=== PATIENT | male | born 1960 | race Caucasian/White ===

== ENCOUNTER 2018-03-10 13:04 | Observation (INO) | payer SELFPAY ==
[2018-03-10] VITALS (7 sets, daily range): BP systolic 175–193; BP diastolic 78–95; PULSE 82–98; RESP 16–20; TEMP 98.1–98.7; O2SAT 98–100
[~2018-03-10] VITALS: Ht 177.8 cm; Wt 100.0 kg
[~2018-03-10 13:04] MED LIST: AMLO10 PO; DOXA1 PO; HYDR-2768 PO; LANTUS2P SQ; LEVO50TA4 PO; LISI-360 PO; LORTA5 PO; METF500 PO; NOVOLOGSS SQ
[2018-03-10] MEDS ORDERED: SODIUM CHLORIDE 0.9% FLUSH 10 ML FLUSH IVF PRN (13:45)
[2018-03-10] MEDS ORDERED: FURO1TAB62 PO (14:05)
[2018-03-10] MEDS ORDERED: NOVONP2 SQ (14:05)
--- NOTE | 2018-03-10 14:05 | RADRPT ---
EXAM DATE: 03/10/2018 1:57 PM EDT AGE/SEX: 57 years / Male INDICATIONS: Shortness of breath. CLINICAL DATA: This is the patient's initial encounter. Patient reports that signs and symptoms have been present for 1 day and indicates a pain score of 0/10. MEDICAL/SURGICAL HISTORY: None. None. COMPARISON: No prior exams available for comparison. FINDINGS: PA and lateral views of the chest demonstrate the lungs to be symmetrically aerated without evidence of mass, infiltrate or effusion. The cardiomediastinal contours are unremarkable. Osseous structures are intact. CONCLUSION: No active disease. Electronically signed by: Phil Webber MD 03/10/2018 2:04 PM EDT
--- NOTE | 2018-03-10 14:19 | RADRPT ---
EXAM DATE: 03/10/2018 2:14 PM EDT AGE/SEX: 57 years / Male INDICATIONS: Right ankle swelling and pain. CLINICAL DATA: This is the patient's initial encounter. Patient reports that signs and symptoms have been present for 2 days and indicates a pain score of 1/10. MEDICAL/SURGICAL HISTORY: Diabetes mellitus type II. . ORIF right ankle x 37 years COMPARISON: No prior exams available for comparison. FINDINGS: Previous plate and screw fixation right fibula. 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 No acute frac ture or dislocation. Bone spur posterior calcaneus. Soft tissue swelling over the lateral malleolus. Accessory ossicle at the medial malleolus which may be from prior fracture. CONCLUSION: No definite acute fracture. Previous fixation distal fibula. Soft tissue swelling over lateral malleo caryn. Probable remote avulsion fracture at the medial malleolus. Electronically signed by: Phil Webber MD 03/10/2018 2:17 PM EDT
[2018-03-10 15:01] LABS: AUTOMATED NEUTROPHIL # 4.5 TH/MM3 (1.8-7.7); BASOPHIL % 0.7 % (0.0-2.0); EOSINOPHIL # 0.2 TH/MM3 (0-0.4); EOSINOPHIL % 2.7 % (0.0-4.0); HEMATOCRIT 36.8 % (39.0-51.0); HEMOGLOBIN 12.9 GM/DL (13.0-17.0); LYMPH % 22.1 % (9.0-44.0); LYMPHOCYTE # 1.5 TH/MM3 (1.0-4.8); MEAN CELL VOLUME 86.2 FL (80.0-100.0); MEAN CORPUSCULAR HEMOGLOBIN 30.2 PG (27.0-34.0); MEAN CORPUSCULAR HGB CONC 35.1 % (32.0-36.0); MEAN PLATELET VOLUME 9.9 FL (7.0-11.0); MONO % 7.7 % (0.0-8.0); MONOCYTE # 0.5 TH/MM3 (0-0.9); NEUT % 66.8 % (16.0-70.0); PLATELET COUNT 138 TH/MM3 (150-450); RED BLOOD COUNT 4.27 MIL/MM3 (4.50-5.90); RED CELL DISTRIBUTION WIDTH 12.9 % (11.6-17.2); WHITE BLOOD COUNT 6.7 TH/MM3 (4.0-11.0)
--- NOTE | 2018-03-10 15:09 | RADRPT ---
EXAM DATE: 03/10/2018 3:05 PM EDT AGE/SEX: 57 years / Male INDICATIONS: Bilateral leg swelling. CLINICAL DATA: This is the patient's initial encounter. Patient reports that signs and symptoms have been present for > 1 year and indicates a pain score of 9/10. MEDICAL/SURGICAL HISTORY: Hypercholesterolemia. Hypertension. Hepatitis C. Anticoagulant the rapy. Pancreatitis. Diabetes. Thyroid disease. . Right ankle surgery. COMPARISON: No prior exams available for comparison. TECHNIQUE: Venous ultrasound of both lower extremities was performed from the inguinal ligament to t he proximal calf. Real-time, color Doppler and spectral tracing, compression and augmentation techni ques were used. FINDINGS: Right Leg: There is normal compressibility of the deep venous system from the inguinal region to the proximal calf. No echogenic clot is seen in the lumen of the common femoral, femoral, popliteal, an d posterior tibial veins. There is a normal response of the venous system to proximal and distal aug mentation and respiration. Left Leg: There is normal compressibility of the deep venous system from the inguinal region to the proximal calf. No echogenic clot is seen in the lumen of the common femoral, femoral, popliteal, and posterior tibial veins. There is a normal response of the venous system to proximal and distal augm entation and respiration. CONCLUSION: 1. Negative for deep venous thrombosis in the bilateral lower extremities. Subcutaneous edema presen t. Electronically signed by: Phil Webber MD 03/10/2018 3:08 PM EDT
[2018-03-10 15:18] LABS: TROPONIN I LESS THAN 0.02 NG/ML (0.02-0.05)
[2018-03-10 15:50] LABS: ALBUMIN 1.6 GM/DL (3.4-5.0); BICARBONATE 20.2 MEQ/L (21.0-32.0); CALCIUM 7.7 MG/DL (8.5-10.1); CREATININE 1.25 MG/DL (0.60-1.30); DIRECT BILIRUBIN ADULT 0.1 MG/DL (0.0-0.2)
[2018-03-10 15:52] LABS: INDIRECT BILIRUBIN 0.3 MG/DL (0.0-0.8); TOTAL BILIRUBIN ADULT 0.4 MG/DL (0.2-1.0); TOTAL PROTEIN 6.1 GM/DL (6.4-8.2)
--- NOTE | 2018-03-10 17:02 | HHI.HP ---
HPI Service Family Medicine Primary Care Physician Unknown Admission Diagnosis acute fluid overload, unclear etiology, cirrhosis vs CHF Diagnoses: International Travel<30 Days: No Contact w/Intl Traveler<30days: No Known Affected Area: No History of Present Illness 57 y/o M hx of DM presenting w/progressive LE edema and SOB. PCP is Dr. Arteaga. Has been getting worse the past 4 months and has not improved w/Lasix (20 mg daily). Endorses increased fatigue and shortness of breath in the last week. SOB occurs while walking longer distances. No chest pain associated w/it. Has been shuffling more instead of walking. States that he can't always feel the bottom of his feet. Increased pain at the site of the right lower foot (had plate placed years ago). No tenderness of the lower extremities. Urgent care gave him Gabapentin to take once a day about 4 months ago. No diarrhea, abdominal pain, chest tightness/pain. Endorses lightheadedness and dizziness, states this occurs after taking BP pills. No fevers, weight loss, change in appetite. Has untreated Hep C, diagnosed in 1982. Has not drank ETOH in 34 years. Was washing his right leg two days ago at a site of his right leg where there is was a small scab, and the site became itchy. He started to scratch it and his skin peeled, leaving a site of desquamation that is approx 7 x4 cm. Lightly bled, is no longer bleeding. Has been putting Bacitracin ointment on it. Review of Systems Constitutional: DENIES: Diaphoretic episodes, Change in appetite Endocrine: DENIES: Polydipsia, Polyuria Eyes: DENIES: Blurred vision, Vision loss Ears, nose, mouth, throat: DENIES: Hearing loss Respiratory: DENIES: Cough, Shortness of breath Cardiovascular: DENIES: Chest pain, Palpitations Gastrointestinal: DENIES: Abdominal pain, Diarrhea, Nausea Genitourinary: DENIES: Urinary frequency, Urinary incontinence Musculoskeletal: DENIES: Joint pain Neurologic: COMPLAINS OF: Paresthesias (Chronic), DENIES: Tremor Past Family Social History Past Medical History Neuropathy DM2 - treated w/OTC novolog SSI HTN Thyroid disease Untreated Hep C - bx performed 6 years ago Pancreatitis Past Surgical History 2 metal plates in the right ankle - 34 years ago Allergies: Coded Allergies: No Known Allergies (Unverified Allergy, Unknown, 6/10/18) Family History Mom: DM2 Dad: none Social History Lives in a house w/ and daughter. No smoking in years. 5 pack year hx. No illicit or recreational drug use. No ETOH use. Physical Exam Vital Signs Vital Signs Date Time Temp Pulse Resp B/P (MAP) Pulse Ox O2 Delivery O2 Flow Rate FiO2 03/10/18 16:46 82 18 192/92 (125) 98 Room Air 03/10/18 13:07 98.1 90 16 193/95 (127) 99 Physical Exam GENERAL: This is a overweight, pleasant gentleman resting comfortably in bed. SKIN: Cool and dry. No jaundice. HEAD: Atraumatic. Normocephalic. EYES: Pupils equal round and reactive. Extraocular motions intact. No scleral icterus. ENT: Uvula midline. Airway patent. NECK: Trachea midline. CARDIOVASCULAR: Regular rate and rhythm without murmurs, gallops, or rubs. RESPIRATORY: Clear to auscultation. Breath sounds equal bilaterally. No wheezes , rales, or rhonchi. GASTROINTESTINAL: Abdomen is distended, non-tender. No hepato-splenomegaly, or palpable masses. No guarding. No fluid wave. MUSCULOSKELETAL: Bilateral moderate pitting edema of the lower extremities extending to the upper thighs. Slight redness of the lower extremities extending fdc to the shins. 7x4 cm area of superficial desquamation. Does not appear infected, but is pink and raw. NEUROLOGICAL: Awake and alert. No focal deficits. Motor and sensory grossly within normal limits. Normal speech. Laboratory Laboratory Tests Test 03/10/18 14:20 03/10/18 15:14 White Blood Count 6.7 Red Blood Count 4.27 Hemoglobin 12.9 Hematocrit 36.8 Mean Corpuscular Volume 86.2 Mean Corpuscular Hemoglobin 30.2 Mean Corpuscular Hemoglobin Concent 35.1 Red Cell Distribution Width 12.9 Platelet Count 138 Mean Platelet Volume 9.9 Neutrophils (%) (Auto) 66.8 Lymphocytes (%) (Auto) 22.1 Monocytes (%) (Auto) 7.7 Eosinophils (%) (Auto) 2.7 Basophils (%) (Auto) 0.7 Neutrophils # (Auto) 4.5 Lymphocytes # (Auto) 1.5 Monocytes # (Auto) 0.5 Eosinophils # (Auto) 0.2 Basophils # (Auto) 0.0 CBC Comment DIFF FINAL Differential Comment Blood Urea Nitrogen 27 Creatinine 1.25 Random Glucose 153 Total Protein 6.1 Albumin 1.6 Calcium Level 7.7 Alkaline Phosphatase 220 Aspartate Amino Transf (AST/SGOT) 126 Alanine Aminotransferase (ALT/SGPT) 97 Total Bilirubin 0.4 Direct Bilirubin 0.1 Sodium Level 142 Potassium Level 4.7 Chloride Level 111 Carbon Dioxide Level 20.2 Anion Gap 11 Estimat Glomerular Filtration Rate 59 Indirect Bilirubin 0.3 Total Creatine Kinase 340 Creatine Kinase MB 7.0 Creatine Kinase MB % 2.1 Troponin I LESS THAN 0.02 B-Type Natriuretic Peptide 27 Ammonia 29 Result Diagram: 03/10/18 1420 03/10/18 1420 Imaging Last Impressions Chest X-Ray 03/10/18 1334 Signed Impressions: CONCLUSION: No active disease. Lower Extremity Ultrasound 03/10/18 0000 Signed Impressions: CONCLUSION: 1. Negative for deep venous thrombosis in the bilateral lower extremities. Sub cutaneous edema present. Ankle X-Ray 03/10/18 0000 Signed Impressions: CONCLUSION: No definite acute fracture. Previous fixation distal fibula. Soft tissue swelli ng over lateral malleolus. Probable remote avulsion fracture at the medial mall eolus. Caprini VTE Risk Assessment Caprin VTE Risk Assessment: Mod/High Risk (score >= 2) Assessment and Plan Assessment and Plan 57 y/o M w/hx DM2 and Hep C admitted to obs for worsening LE edema and SOB. BNP in low-normal range. CXR negative for abnormalities. Order echo to rule out heart failure. Liver ultrasound ordered for further eval of suspected cirrhosis. Code Status FULL Problem List: (1) Lower extremity edema ICD Codes: R60.0 - Localized edema Plan: Takes Lasix 20 mg daily On amlodipine 10 mg daily for BP AST and ALT mildly elevated Hep C positive, untreated for years Likely due to liver cirrhosis v liver malignancy v heart failure +/- stasis dermatitis Held amlodipine Lasix 20 mg x1, increase to Lasix 40 mg daily Liver US AFP level Coag profile 2D echo to rule out heart failure, BNP wnl Will likely benefit from compression stockings, can be worn outpatient (2) Leg wound, right ICD Codes: S81.801A - Unspecified open wound, right lower leg, initial encounter Plan: Superficial Wound ostomy consulted to assist pt in caring for wound (3) Thyroid disease ICD Codes: E07.9 - Disorder of thyroid, unspecified Plan: Con't home levothyroxine (4) Cirrhosis ICD Codes: K74.60 - Cirrhosis Status: Chronic Plan: Hep C +, untreated Recommend outpatient follow-up (5) DM (diabetes mellitus) ICD Codes: E11.9 - DM (diabetes mellitus) Status: Chronic Plan: Likely ssociated w/peripheral neuropathy Novolog SSI at home, not well-controlled SSI w/bedside accuchecks Advise outpatient management (6) HTN (hypertension) ICD Codes: I10 - HTN (hypertension) Status: Acute Plan: Home meds are amlodipine, furosemide, and doxazosin Amlodipine held Lisinopril 5 mg added for better control Clonidine PRN for hypertensive urgency (7) FEN Plan: Fluids: PO Electrolytes: none Nutrition: reg diet DVT prophy: Lovenox q24 h Problem Qualifiers (1) Cirrhosis: Qualified Codes: K74.60 - Unspecified cirrhosis of liver (2) DM (diabetes mellitus): Qualified Codes: E11.8 - Type 2 diabetes mellitus with unspecified complications Shraddha Judge MD R1 Mar 10, 2018 17:02
[2018-03-10] MEDS ORDERED: DOXA1TAB35 PO (17:08)
[2018-03-10] MEDS ORDERED: LEVO50TA4 PO (17:08)
[2018-03-10] MEDS ORDERED: AMLO10 PO (17:08)
--- NOTE | 2018-03-10 17:36 | PD ---
HPI Chief Complaint: Edema Time Seen by Provider: 13:38 Travel History International Travel<30 days: No Contact w/Intl Traveler<30days: No Traveled to known affect area: No History of Present Illness HPI 57-year-old male that presents to the ED for evaluation of lower leg edema and shortness of breath with exertion. Per patient she has had this for about a month or maybe more. Per patient is progressively getting worse. Per patient he went to an urgent care and they told him that he needed to start Lasix. He was given a prescription for Lasix 20 mg once a day states that he has been compliant with the medication with no improvement at all. He is concerned because the swelling seems to be getting worse as well as the shortness of breath with exertion. He states that he feels worse when he lays back flat. He denies any chest pain at all. He does state that he has a history of hep C, diabetes, hypertension. He denies any recent travel. Takes no blood thinners. Denies any urinary or bowel movement issues. Denies any abdominal pain. Has no allergies to medication. Has not follow with his doctor. He does tell me that the swelling of his leg has been getting so bad that he is having leakage from the legs as well as what appears to be an open wound on his right leg. Denies any fevers chills or sweats. no other medical issues. PFSH Past Medical History Hx Anticoagulant Therapy: Yes Cardiovascular Problems: Yes (HTN; HIGH TRIGLYCERIDES) High Cholesterol: Yes Diabetes: Yes (TYPE 2 INSULIN) Patient Takes Glucophage: No Diminished Hearing: No Endocrine: Yes Gastrointestinal Disorders: Yes Genitourinary: No Hepatitis: Yes (C) Hypertension: Yes Musculoskeletal: No Neurologic: No Psychiatric: No Respiratory: No Pancreatitis: Yes Thyroid Disease: Yes Tetanus Vaccination: < 5 Years Past Surgical History Other Surgery: Yes (RT ANKLE) Social History Alcohol Use: No Tobacco Use: Yes Substance Use: No Allergies-Medications (Allergen,Severity, Reaction): Coded Allergies: No Known Allergies (Unverified Adverse Reaction, Unknown, 03/10/18) Reported Meds & Prescriptions Reported Meds & Active Scripts Active Reported Levothyroxine (Levothyroxine Sodium) 50 Mcg Tab 50 Mcg PO DAILY Doxazosin (Doxazosin Mesylate) 2 Mg Tab 2 Mg PO DAILY Norvasc (Amlodipine Besylate) 10 Mg Tab 10 Mg PO DAILY Novolin N Inj (Insulin Human NPH) 1,000 Unit/10 Ml Vial 0 SQ DIRECTED Sliding Scale As Directed. Lasix (Furosemide) 20 Mg Tab 20 Mg PO DAILY Review of Systems Except as stated in HPI: all other systems reviewed are Neg Physical Exam Narrative GENERAL: SKIN: Warm and dry. HEAD: Atraumatic. Normocephalic. EYES: Pupils equal and round. No scleral icterus. No injection or drainage. ENT: No nasal bleeding or discharge. Mucous membranes pink and moist. Tongue is midline. No uvula deviation. NECK: Trachea midline. No JVD. CARDIOVASCULAR: Regular rate and rhythm. No murmurs, S3, S4. RESPIRATORY: No accessory muscle use. Clear to auscultation. Breath sounds equal bilaterally. GASTROINTESTINAL: Abdomen soft, non-tender, nondistended. Hepatic and splenic margins not palpable. MUSCULOSKELETAL: Extremities without clubbing, cyanosis, or edema. No obvious deformities. Full range of motion of the upper and lower extremity bilaterally. 2+ pulses bilaterally. 2+ pedal edema on the lower extremities bilaterally. Patient does have what appears to be a wound on the right leg that is about 5 cm in diameter. Slightly erythematous with some serosanguineous drainage. Sensation intact bilaterally. NEUROLOGICAL: Awake and alert. No obvious cranial nerve deficits. Motor grossly within normal limits. Five out of 5 muscle strength in the arms and legs. Normal speech. PSYCHIATRIC: Appropriate mood and affect; insight and judgment normal. Data Data Last Documented VS Vital Signs Date Time Temp Pulse Resp B/P (MAP) Pulse Ox O2 Delivery O2 Flow Rate FiO2 03/10/18 16:46 82 18 192/92 (125) 98 Room Air 03/10/18 13:07 98.1 Orders Orders Complete Blood Count With Diff (03/10/18 13:34) Basic Metabolic Panel (Bmp) (03/10/18 13:34) B-Type Natriuretic Peptide (03/10/18 13:34) Iv Access Insert/Monitor (03/10/18 13:34) Electrocardiogram (03/10/18 13:34) Chest, Pa & Lat (03/10/18 13:34) Sodium Chloride 0.9% Flush (Ns Flush) (03/10/18 13:45) Us Leg Venous Doppler Bilat (03/10/18 ) Troponin I (03/10/18 13:57) Ckmb (Isoenzyme) Profile (03/10/18 13:57) Ankle, Complete ([id number]) (03/10/18 ) Ammonia (03/10/18 14:19) CKMB (03/10/18 14:20) CKMB% (03/10/18 14:20) Hepatic Functional Panel (03/10/18 13:34) Admit Order (Ed Use Only) (03/10/18 16:47) Labs Laboratory Tests Test 03/10/18 14:20 03/10/18 15:14 White Blood Count 6.7 TH/MM3 Red Blood Count 4.27 MIL/MM3 Hemoglobin 12.9 GM/DL Hematocrit 36.8 % Mean Corpuscular Volume 86.2 FL Mean Corpuscular Hemoglobin 30.2 PG Mean Corpuscular Hemoglobin Concent 35.1 % Red Cell Distribution Width 12.9 % Platelet Count 138 TH/MM3 Mean Platelet Volume 9.9 FL Neutrophils (%) (Auto) 66.8 % Lymphocytes (%) (Auto) 22.1 % Monocytes (%) (Auto) 7.7 % Eosinophils (%) (Auto) 2.7 % Basophils (%) (Auto) 0.7 % Neutrophils # (Auto) 4.5 TH/MM3 Lymphocytes # (Auto) 1.5 TH/MM3 Monocytes # (Auto) 0.5 TH/MM3 Eosinophils # (Auto) 0.2 TH/MM3 Basophils # (Auto) 0.0 TH/MM3 CBC Comment DIFF FINAL Differential Comment Blood Urea Nitrogen 27 MG/DL Creatinine 1.25 MG/DL Random Glucose 153 MG/DL Total Protein 6.1 GM/DL Albumin 1.6 GM/DL Calcium Level 7.7 MG/DL Alkaline Phosphatase 220 U/L Aspartate Amino Transf (AST/SGOT) 126 U/L Alanine Aminotransferase (ALT/SGPT) 97 U/L Total Bilirubin 0.4 MG/DL Direct Bilirubin 0.1 MG/DL Sodium Level 142 MEQ/L Potassium Level 4.7 MEQ/L Chloride Level 111 MEQ/L Carbon Dioxide Level 20.2 MEQ/L Anion Gap 11 MEQ/L Estimat Glomerular Filtration Rate 59 ML/MIN Indirect Bilirubin 0.3 MG/DL Total Creatine Kinase 340 U/L Creatine Kinase MB 7.0 NG/ML Creatine Kinase MB % 2.1 % Troponin I LESS THAN 0.02 NG/ML B-Type Natriuretic Peptide 27 PG/ML Ammonia 29 MCMOL/L MDM Medical Decision Making Medical Screen Exam Complete: Yes Emergency Medical Condition: Yes Medical Record Reviewed: Yes Interpretation(s) CBC & BMP Diagram 03/10/18 14:20 Total Protein 6.1 L, Albumin 1.6 L, Calcium Level 7.7 L, Alkaline Phosphatase 220 H, Aspartate Amino Transf (AST/SGOT) 126 H, Alanine Aminotransferase (ALT/ SGPT) 97 H, Total Bilirubin 0.4, Direct Bilirubin 0.1 Last Impressions Chest X-Ray 03/10/18 1334 Signed Impressions: CONCLUSION: No active disease. Lower Extremity Ultrasound 03/10/18 0000 Signed Impressions: CONCLUSION: 1. Negative for deep venous thrombosis in the bilateral lower extremities. Sub cutaneous edema present. Ankle X-Ray 03/10/18 0000 Signed Impressions: CONCLUSION: No definite acute fracture. Previous fixation distal fibula. Soft tissue swelli ng over lateral malleolus. Probable remote avulsion fracture at the medial mall eolus. BNP WNL troponin and CKMB negative EKG shows sinus rhythm with no sign of acute ischemia and arrhythmia read by me and attending. Differential Diagnosis CHF versus cirrhosis versus lower leg edema versus DVT versus ACS Narrative Course 57-year-old male that presents to the ED for evaluation of lower leg swelling and shortness of breath with exertion. Patient was properly examined and was found to have signs and symptoms of unclear etiology. Labs and imaging order. Labs and imaging showed no sign of acute disease. Unclear etiology of the symptoms. At this time I do recommend admission for further evaluation especially the shortness of breath with exertion. I think that the patient probably will require some further work up for evaluation of this. Patient and family agree with this. Case discussed with the residents who agreed to admission. Diagnosis Primary Impression: Fluid overload Qualified Codes: E87.70 - Fluid overload, unspecified Additional Impression: Cirrhosis Qualified Codes: K74.60 - Unspecified cirrhosis of liver Admitting Information Admitting Physician Requests: Jeremie Aguiar Mar 10, 2018 17:35
[2018-03-10] MEDS ORDERED: NALOXONE HCL 0.4 MG/ML AMP IV PUSH PRN (18:45)
[2018-03-10] MEDS ORDERED: LACTULOSE SYRUP 20 GM/30 ML CUP PO PRN (18:45)
[2018-03-10] MEDS ORDERED: SODIUM CHLORIDE 0.9% FLUSH 10 ML FLUSH IV FLUSH PRN (18:45)
[2018-03-10] MEDS ORDERED: BISACODYL 10 MG SUPP RECTAL PRN (18:45)
[2018-03-10] MEDS ORDERED: FUROSEMIDE 20 MG TAB PO ONE (18:45)
[2018-03-10] MEDS ORDERED: ACETAMINOPHEN 325 MG TAB PO PRN (18:45)
[2018-03-10] MEDS ORDERED: MAGNESIUM HYDROXIDE SUSP 30 ML CUP PO PRN (18:45)
[2018-03-10] MEDS ORDERED: SENNOSIDES 8.6 MG TAB PO PRN (18:45)
[2018-03-10] MEDS ORDERED: METOCLOPRAMIDE HCL 10 MG/2 ML VIAL IV PUSH PRN (18:45)
[2018-03-10] MEDS ORDERED: ZOLPIDEM TARTRATE 5 MG TAB PO PRN (18:45)
[2018-03-10] MEDS: SODIUM CHLORIDE 0.9% FLUSH 10 ML FLUSH IV FLUSH SCH (19:15)
--- NOTE | 2018-03-10 19:26 | RADRPT ---
EXAM DATE: 03/10/2018 7:11 PM EDT AGE/SEX: 57 years / Male INDICATIONS: Increased lab values. CLINICAL DATA: This is the patient's initial encounter. Patient reports that signs and symptoms have been present for 1 day and indicates a pain score of 0/10. MEDICAL/SURGICAL HISTORY: . Hypercholesterolemia. Hypertension. Hepatitis C. Anticoagulant ther apy. Pancreatitis. Diabetes. Thyroid disease. . Right ankle surgery. COMPARISON: No prior exams available for comparison. MEASUREMENTS (cm x cm x cm): Liver:__ 15.6 cm cm length Common Bile Duct:__ 5mm Right Kidney:__ 10.2 x 4.7 x 5.5 cm FINDINGS: Liver: Normal echotexture without focal lesion or ductal dilatation. Portal Vein: Hepatopedal flow seen in portal vein. Common Duct: No intraluminal mass or stone visualized. Gallbladder: Demonstrates no wall thickening or pericholecystic fluid. No stones visualized. Gallbla dder Wall: 3 mm Pancreas: Not well visualized. Right Kidney: No mass or hydronephrosis Other: None. CONCLUSION: 1. Normal examination. No gallstones or biliary ductal dilatation. Electronically signed by: Phil Webber MD 03/10/2018 7:24 PM EDT
[2018-03-10] MEDS ORDERED: GLUCAGON 1 MG/ML VIAL OTHER PRN (19:45)
[2018-03-10] MEDS ORDERED: DEXTROSE 50% IN WATER 50 ML VIAL(D50) IV PUSH PRN (19:45)
[2018-03-10] MEDS ORDERED: ENOXAPARIN SODIUM 30 MG/0.3 ML SYRINGE SQ SCH (20:00)
[2018-03-10] MEDS: LISINOPRIL 5 MG TAB PO SCH (20:06)
[2018-03-10 20:56] LABS: PROTHROMBIN TIME - PATIENT 10.1 SEC (9.8-11.6)
[2018-03-10] MEDS: INSULIN ASPART SUPPLEMENTAL SCALE SQ SCH (21:04)
[2018-03-10] MEDS: cloNIDine HCL 0.1 MG TAB PO PRN (23:17)
[2018-03-11 04:15] VITALS: BP 185/92; PULSE 82; RESP 18; TEMP 98.7; O2SAT 97
[2018-03-11] MEDS: cloNIDine HCL 0.1 MG TAB PO PRN (04:42)
[2018-03-11] MEDS ORDERED: LEVOTHYROXINE SODIUM 50 MCG TAB PO SCH (06:00)
[2018-03-11 07:35] LABS: AUTOMATED NEUTROPHIL # 3.4 TH/MM3 (1.8-7.7); BASOPHIL % 0.7 % (0.0-2.0); EOSINOPHIL # 0.1 TH/MM3 (0-0.4); HEMATOCRIT 33.5 % (39.0-51.0); HEMOGLOBIN 11.7 GM/DL (13.0-17.0); LYMPH % 20.6 % (9.0-44.0); MEAN CELL VOLUME 86.8 FL (80.0-100.0); MEAN CORPUSCULAR HEMOGLOBIN 30.3 PG (27.0-34.0); MEAN CORPUSCULAR HGB CONC 34.9 % (32.0-36.0); MEAN PLATELET VOLUME 9.5 FL (7.0-11.0); MONO % 9.5 % (0.0-8.0); MONOCYTE # 0.5 TH/MM3 (0-0.9); NEUT % 67.2 % (16.0-70.0); PLATELET COUNT 122 TH/MM3 (150-450); RED BLOOD COUNT 3.86 MIL/MM3 (4.50-5.90); RED CELL DISTRIBUTION WIDTH 12.8 % (11.6-17.2); WHITE BLOOD COUNT 5.1 TH/MM3 (4.0-11.0)
[2018-03-11] MEDS ORDERED: FUROSEMIDE 40 MG TAB PO SCH (08:00)
[2018-03-11 08:02] LABS: ALBUMIN 1.4 GM/DL (3.4-5.0); ALKALINE PHOSPHATASE 191 U/L (45-117); ALT (GPT) 75 U/L (12-78); AST (GOT) 86 U/L (15-37); BICARBONATE 22.9 MEQ/L (21.0-32.0); BLOOD UREA NITROGEN 27 MG/DL (7-18); CALCIUM 7.5 MG/DL (8.5-10.1); CHLORIDE 110 MEQ/L (98-107); GLOMERULAR FILTRATION RATE 52 ML/MIN (>89); GLUCOSE,RANDOM 341 MG/DL (74-106); SODIUM (NA) 140 MEQ/L (136-145); TOTAL BILIRUBIN ADULT 0.2 MG/DL (0.2-1.0); TOTAL PROTEIN 5.5 GM/DL (6.4-8.2)
[2018-03-11 08:40] VITALS: BP 147/70; PULSE 66; RESP 18; TEMP 97.1; O2SAT 97
[2018-03-11] MEDS ORDERED: DOXAZOSIN MESYLATE 2 MG TAB PO SCH (09:00)
[2018-03-11] MEDS ORDERED: LISINOPRIL 5 MG TAB PO SCH (09:00)
[2018-03-11] MEDS ORDERED: MULTIVITAMIN TAB PO SCH (09:00)
[2018-03-11] MEDS ORDERED: GABA100C4 PO (09:29)
[2018-03-11] MEDS: LISINOPRIL 5 MG TAB PO SCH (09:30)
[2018-03-11] MEDS: SODIUM CHLORIDE 0.9% FLUSH 10 ML FLUSH IV FLUSH SCH (09:31)
[2018-03-11] MEDS: INSULIN ASPART SUPPLEMENTAL SCALE SQ SCH ×2 (09:32→14:36)
[2018-03-11] MEDS ORDERED: LISI10TA3 PO (10:12)
--- NOTE | 2018-03-11 10:19 | HHI.DCPOC ---
Discharge Care Plan Diagnosis: (1) Lower extremity edema (2) Cirrhosis (3) Leg wound, right Goals to Promote Your Health * To prevent worsening of your condition and complications * To maintain your health at the optimal level Directions to Meet Your Goals Follow up with your primary doctor for blood pressure, diabetes, and leg swelling If you have been prescribed losartan, do not take it (taking lisinopril and losartan together can cause kidney injury) Your results for the heart ultrasound are pending; have your new doctor contact the hospital for the results (or you can request record yourself). If anything is severely abnormal, someone will call you Do not apply topical antibiotic to the leg wound. Use Vaseline You reported a history of liver problems including hepatitis C. This should be followed up with blood work by your primary care doctor. Take your medications as prescribed Follow your dietary instruction Follow activity as directed Keep your appointments as scheduled Take your immunizations and boosters as scheduled If your symptoms worsen call your PCP, if no PCP go to Urgent Care Center or Emergency Room Smoking is Dangerous to Your Health. Avoid second hand smoke Call the 24-hour hour crisis hotline for domestic abuse at [place] Carrillo MD R2 Mar 11, 2018 10:19
--- NOTE | 2018-03-11 12:20 | HHI.FPPN ---
Subjective Remarks Blood pressure elevated overnight 175/81-190/91. Patient endorses significant improvement in his symptoms today. Denies any pain , no acute complaints. Is interested to know the cause of his diagnosis and how to prevent. (Shraddha Judge MD R1) Objective Vitals Vital Signs Date Time Temp Pulse Resp B/P (MAP) Pulse Ox O2 Delivery O2 Flow Rate FiO2 03/11/18 08:40 97.1 66 18 147/70 (95) 97 03/11/18 04:15 98.7 82 18 185/92 (123) 97 03/10/18 23:12 98.7 93 20 190/91 (124) 98 03/10/18 20:54 93 18 175/81 (112) 99 Room Air 03/10/18 20:05 98 18 181/90 (120) 100 Room Air 03/10/18 19:46 90 18 184/90 (121) 99 Room Air 03/10/18 17:42 184/78 (113) 03/10/18 16:46 82 18 192/92 (125) 98 Room Air 03/10/18 13:07 98.1 90 16 193/95 (127) 99 I/O 03/10/18 03/10/18 03/10/18 03/11/18 03/11/18 03/11/18 07:00 15:00 23:00 07:00 15:00 23:00 Intake Total 480 ml Output Total 1350 ml Balance -870 ml Intake Oral 480 ml Output Urine Total 1350 ml # Voids 2 (Shraddha Judge MD R1) Result Diagram: 03/11/18 0641 03/11/18 0641 Objective Remarks O. CONSTITUTIONAL/GEN: This is a pleasant, overweight white male resting comfortably in bed. EYES: EOMI. ENT: Mouth and pharynx normal. LUNGS: clear A-P, respiratory effort is normal. CARDIOVASCULAR: RR without murmur or gallop. GI/ABD: Nontender. NEURO: No focal deficits. Gait is normal SKIN: color normal, no rashes noted. HEME/LYMPH: no bruising, petechia or significant adenopathy MUSC: Lower extremities reduced in swelling. Pitting edema remains. PSYCH/MENTAL STATUS: Alert and oriented x 3. (Shraddha Judge MD R1) A/P Assessment and Plan 57 y/o M w/hx DM2 and Hep C admitted to obs for worsening LE edema and SOB. Liver ultrasound and laboratory workup negative for cirrhosis. Transaminitis may be secondary to have fatty liver. GFR on admission 59 is 52 today. Patient was told that he has possible stage II chronic kidney disease by "some doctor (s).". Degree of diabetes mellitus control is unknown. Spoke with patient and his today and explained that lower extremity swelling is likely due to multiple factors: Poor circulation/stasis dermatitis, obstructive sleep apnea,amlodipine use, chronic kidney disease. Discharge Planning Discharge today. Follow-up with PCP in 2 weeks. (Shraddha Judge MD R1) Attending Attestation Patient seen and examined. Case reviewed and discussed with the resident team. Agree with plan of care as discussed with me and documented in the resident note. (Marina Andre MD) Problem List: (1) Lower extremity edema ICD Codes: R60.0 - Localized edema Plan: Improved. Coag profile and liver ultrasound normal. - Discontinue amlodipine - Further blood pressure management outpatient. Will discharge on 10 mg lisinopril daily with follow-up BMP in a week. - Patient on day 2 of Lasix 40 mg daily, endorse improvement. Morning labs show BUN/creatinine of 27/1.4. To avoid stress on the kidney, will discharge patient on 20 mg Lasix daily and have him further managed outpatient with close monitoring of renal function and electrolyte. - AFP level - 2D echo results pending. Spoke with echocardiography, report likely to be right around lunchtime. If not, will discharge patient and later contact him about results. - Will likely benefit from compression stockings, can be worn outpatient and patient was counseled on this. States that he has compression stockings but does not like to use them. (2) Leg wound, right ICD Codes: S81.801A - Unspecified open wound, right lower leg, initial encounter Plan: Superficial Wound ostomy consulted to assist pt in caring for wound (3) Thyroid disease ICD Codes: E07.9 - Disorder of thyroid, unspecified Plan: Con't home levothyroxine (4) Cirrhosis ICD Codes: K74.60 - Cirrhosis Status: Chronic Plan: Hep C +, untreated Recommend outpatient follow-up (5) DM (diabetes mellitus) ICD Codes: E11.9 - DM (diabetes mellitus) Status: Chronic Plan: Likely ssociated w/peripheral neuropathy Novolog SSI at home, not well-controlled SSI w/bedside accuchecks Advise outpatient management (6) HTN (hypertension) ICD Codes: I10 - HTN (hypertension) Status: Acute Plan: Home meds are amlodipine, furosemide, and doxazosin Amlodipine held and discontinued Lisinopril 10 mg added for better control (7) FEN Plan: Fluids: PO Electrolytes: none Nutrition: reg diet DVT prophy: Lovenox q24 h (Shraddha Judge MD R1) Problem Qualifiers (1) Cirrhosis: Qualified Codes: K74.60 - Unspecified cirrhosis of liver (2) DM (diabetes mellitus): Qualified Codes: E11.8 - Type 2 diabetes mellitus with unspecified complications (3) HTN (hypertension): Qualified Codes: I10 - Essential (primary) hypertension Shraddha Judge MD R1 Mar 11, 2018 12:20 Marina Andre MD Mar 11, 2018 12:47
[2018-03-11 12:30] VITALS: BP 146/79; PULSE 78; RESP 18; TEMP 98.3; O2SAT 96
--- NOTE | 2018-03-11 14:33 | EKG ---
Date Performed: 03/10/2018 Time Performed: 13:12:54 PTAGE: 57 years EKG: Sinus rhythm LOW QRS VOLTAGE IN PRECORDIAL LEADS BORDERLINE ECG NO PREVIOUS TRACING DOCTOR: Sebastian Fletcher Interpretating Date/Time 03/11/2018 14:31:03
[2018-03-11 16:12] VITALS: BP 165/83; PULSE 83; RESP 19; TEMP 98.3; O2SAT 98
--- NOTE | 2018-03-11 16:55 | PD.WCN.NOT ---
Wound Consult Description: Wound consult ordered by R1 for wound management Communicated with: Sherman SARABIA, Recommendation: 1. Cleanse right lower extremity unroofed bulla with normal saline pat dry. 2. Apply thin layer of Silvadene to wound base and cover with dry non adhesive dressing secure with rolled gauze/tape. 3. Change dressing daily or as needed for dislodgement/exudate.Sign and date all dressings. 4. Encourage patient to reframe from prolong standing or sodium.Elevate lower extremities when in bed. 5. Seek medical attention if wounds worsen of treatment fails. Additional Information: Patient was seen today by board writer in [facility] for wound management.Patient alert and oriented x4 with no current complaints of acute distress/ discomfort.Ambulates with no assistance.Buttermaker Continuous Churn was able to remove non slip socks and visualize bilateral lower extremities.Patient currently noted to have +1 bilateral pitting edema in which he states is dramatically reduce from admission.Right lower extremity has a fully unroofed partial thickness bulla measuring ~10.0cm x ~8.0cm x <0.1cm to medial peralta area.Wound base is moist pink non granular tissue with no erythema noted to periwound.Scant serous exudate noted.Wound edges are well defined and even with wound base.no signs or symptoms of infection present at this time.Wound cleansed with normal saline and pat dry.Silvadene ordered and Sherman SARABIA will apply when available.Instructed patient on wound care.Hand washing infection control.1 week of supplies left with patient including rolled gauze ,sterile gauze,Telfa, paper tape,saline flushes,hand education diagnostician.Patient demonstrated wound care instruction using teach back method and verbalized sign and symptoms of infection RE:fever,redness,odor,drainage.Patient had no further questions upon writers departure. Cindy Kim [facility] Mar 11, 2018 16:55
--- NOTE | 2018-03-11 16:56 | ECHRPT ---
Indication: SOB CONCLUSIONS Normal left ventricular size. Possible mild concentric left ventricular hypertrophy. The left ventricular systolic function is hyperdynamic with an estimated ejection fraction in the ra nge of 65- 70%. The left atrial size is mildly dilated. Mild mitral annular thickening without MR. Mild aortic valve sclerosis is present. BP: / HR: Rhythm: MEASUREMENTS (Male / Female) Normal Values Technical Quality: 2D ECHO LV Diastolic Diameter PLAX 4.8 cm 4.2 - 5.9 / 3.9 - 5.3 cm LV Systolic Diameter PLAX 3.2 cm IVS Diastolic Thickness 1.5 cm 0.6 - 1.0 / 0.6 - 0.9 cm LVPW Diastolic Thickness 0.8 cm 0.6 - 1.0 / 0.6 - 0.9 cm LV Relative Wall Thickness 0.5 RV Internal Dim ED PLAX 2.3 cm LA Systolic Diameter LX 4.8 cm 3.0 - 4.0 / 2.7 - 3.8 cm M-MODE AV Cusp Separation MM 1.8 cm DOPPLER Mitral E Point Velocity 96.0 cm/s Mitral A Point Velocity 77.3 cm/s Mitral E to A Ratio 1.2 TR Peak Velocity 189.5 cm/s TR Peak Gradient 14.4 mmHg Right Atrial Pressure 10.0 mmHg Pulmonary Artery Systolic Pressu 24.4 mmHg Right Ventricular Systolic Press 24.4 mmHg FINDINGS LEFT VENTRICLE Normal left ventricular size. Possible mild concentric left ventricular hypertrophy. The left ventricular systolic function is hyperdynamic with an estimated ejection fraction in the ra nge of 65- 70%. RIGHT VENTRICLE Normal right ventricular size and systolic function. LEFT ATRIUM The left atrial size is mildly dilated. RIGHT ATRIUM The right atrial size is normal. ATRIAL SEPTUM Normal atrial septal thickness without atrial level shunting by limited color doppler interrogation. AORTA The aortic root and proximal ascending aorta are normal in size on limited imaging. MITRAL VALVE Mild mitral annular thickening without MR. AORTIC VALVE Trileaflet aortic valve. Mild aortic valve sclerosis is present. TRICUSPID VALVE Structurally normal tricuspid valve. No tricuspid valve stenosis or regurgitation. PULMONARY VALVE No pulmonary valve regurgitation or stenosis. VESSELS The inferior vena cava is normal in size. PERICARDIUM No pericardial effusion. Phillip Maki MD (Electronically Signed) Final Date:11 March 2018 16:55
[2018-03-11] MEDS ORDERED: SILVER SULFADIAZINE 1% CR 50 GM JAR TOPICAL SCH (18:00)
[2018-03-12] MEDS ORDERED: FUROSEMIDE 40 MG TAB PO SCH (09:00)
== END 2018-03-11 18:20 | disposition home or self-care (01) ==
LOC: NEPE 13:04 → NEDA 16:49 → NEPHCDU 21:16
PROVIDERS: ADMIT Family Medicine; ATTEND Family Medicine
DX: R06.02 Shortness of breath (principal); R60.0 Localized edema; R42 Dizziness and giddiness; B19.20 Unspecified viral hepatitis C without hepatic coma; I12.9 Hypertensive chronic kidney disease with stage 1 through stage 4 chronic kidney disease, or unspecified chronic kidney disease; E11.22 Type 2 diabetes mellitus with diabetic chronic kidney disease; N18.9 Chronic kidney disease, unspecified; I16.0 Hypertensive urgency; E11.40 Type 2 diabetes mellitus with diabetic neuropathy, unspecified; E78.1 Pure hyperglyceridemia; E78.00 Pure hypercholesterolemia, unspecified; G47.33 Obstructive sleep apnea (adult) (pediatric); E07.9 Disorder of thyroid, unspecified; K74.60 Unspecified cirrhosis of liver; Z87.891 Personal history of nicotine dependence; Z79.899 Other long term (current) drug therapy
CPT/HCPCS: 71046; 73610; 76705; 80048; 80053; 80076; 82105; 82140; 82550; 82552; 82948; 83880; 84484; 85025; 85610; 85730; 93005; 93306; 93970; 96372; 99285; G0378; J1650; J1815

== ENCOUNTER → 2018-03-20 | Outpatient (CLI) | payer SELFPAY ==
[~2018-03-20] MED LIST changes: -AMLO10 PO; -DOXA1 PO; +DOXA1TAB35 PO; +FURO1TAB62 PO; +GABA100C4 PO; -HYDR-2768 PO; -LANTUS2P SQ; -LISI-360 PO; +LISI10TA3 PO; -LORTA5 PO; -METF500 PO; -NOVOLOGSS SQ; +NOVONP2 SQ
[2018-03-20 14:46] LABS: BICARBONATE 22.7 MEQ/L (21.0-32.0); CALCIUM 7.7 MG/DL (8.5-10.1); CREATININE 1.44 MG/DL (0.60-1.30)
== END ==
LOC: CLAB 14:03
PROVIDERS: ATTEND Family Medicine
DX: I10 Essential (primary) hypertension (principal)
CPT/HCPCS: 36415; 80048

== ENCOUNTER 2018-04-07 21:15 | Inpatient (IN) ==
--- NOTE | 2018-04-07 21:58 | ED ---
HPI General Chief complaint: Weakness Stated complaint: Edema Time Seen by Provider: 04/07/18 21:52 Source: patient and family Limitations: no limitations History of Present Illness HPI narrative: The patient is a 57 year old male who presents to the [facility] emergency department with a history of generalized fatigue, dyspnea on exertion, and rash that began on his extremities 2-3 days ago. The patient additionally reports having lower extremity edema over the last 3 months that has gotten worse over the last few days. He reports that he is on a diuretic for this. He denies having any history of congestive heart failure. The patient reports that he did see a new primary care physician, Dr. Arevalo on Sunday. He reports that he was started on 2 new medications. He reports that he was started on Keflex, however he is unsure why he was started on an antibiotic. He was also started on hydralazine for his blood pressure. The patient reports that the rash began on his upper extremities. He reports that it is itchy. It is generalized to the face, trunk, and lower extremities. He denies having any chest pain or chest pressure. He denies having any nausea, vomiting, or diarrhea. He reports having a history of diabetes with difficult to control blood sugars. He is on sliding scale regular insulin. He reports that he was previously prescribed a long-acting insulin, however he is not able to afford it. The patient additionally reports that he has a history of hepatitis C, however he has not undergone treatment for it. Finally, the patient reports related to his recent history, a month ago he developed open wounds to the medial aspects of bilateral legs. He reports that he has been bandaging these areas and they are slowly healing. He denies going to the wound care center for treatment. The patient incidentally reports having dizziness whenever he stands over the last couple of days. He reports having generalized weakness. Denies having any numbness or tingling to his extremities. He denies having any headache or neck pain. He denies having any visual changes. Related Data Home Medications Medication Instructions Recorded Confirmed cephalexin 500 mg PO Q6H 04/08/18 04/08/18 doxazosin 2 mg PO 04/08/18 furosemide 20 mg PO DAILY 04/08/18 04/08/18 gabapentin 100 mg PO TID 04/08/18 04/08/18 hydralazine 50 mg PO BID 04/08/18 04/08/18 levothyroxine 75 mcg PO DAILY 04/08/18 04/08/18 lisinopril 10 mg PO DAILY 04/08/18 04/08/18 Allergies Allergy/AdvReac Type Severity Reaction Status Date / Time No Known Allergies Allergy Verified 04/07/18 21:46 Review of Systems ROS Unobtainable All other systems reviewed negative except as stated in HPI Constitutional Denies fever(s) Eyes Denies change in vision ENT Denies headache(s) and Denies nasal congestion Cardiovascular Denies chest pain Respiratory Reports dyspnea and Reports dyspnea on exertion Gastrointestinal Denies abdominal pain, Denies diarrhea, Denies nausea and Denies vomiting Genitourinary Denies difficulty urinating Musculoskeletal Denies myalgias Integumentary/Breasts Reports pruritus and Reports rash Neurologic Denies headache(s), Denies focal weakness and Reports weakness (generalized fatigue and dizziness) Psychiatric Denies depression Endocrine Reports polyuria Hematologic/Lymphatic Denies easy bruising PMFSH History History Provided By: Patient and Family Member Medical History Medical History Chronic kidney disease (CKD), stage III (moderate) (Acute) Diabetes (Acute) HTN (hypertension) (Acute) Hep C w/o coma, chronic (Acute) Liver cirrhosis (Acute) Social History Social History Second Hand Smoke Exposure: No Smoking Status: Former smoker How Often Do You Have a Drink Containing Alcohol: Never Recent Travel in [facility] within the Last 8 Weeks: No Recent Out of Country Travel within the Last 8 Weeks: No Exam Const General: cooperative, no acute distress and well developed Nutritional Appearance: well nourished Orientation: oriented x3 HENMT Head: normocephalic and atraumatic Nose: no nasal discharge and no epistaxis Mouth: moist mucous membranes Eyes Sclera: normal sclerae Pupils: PERRL Neck Neck: trachea midline and no JVD Resp Effort & Inspection: no use of accessory muscles Auscultation: clear to auscultation bilaterally Cardio Rate: tachycardic (Sinus tachycardia in the low 100s. No pulse deficits to the extremities on simultaneous auscultation and palpation of his radial artery) Rhythm: regular rhythm Heart Sounds: no gallops, no murmurs and no rubs GI Inspection: non-distended Palpation: soft, no hepatosplenomegaly, no guarding, not rigid and nontender Auscultation: normal bowel sounds Skin General: crusts, dry skin (warm) and other Rashes: rashes noted Neuro General: alert, awake and oriented x3 Cranial Nerves: CN's II-XI intact bilaterally Speech: speech normal Motor: no movement abnormalities noted Sensory Exam: no sensory deficits noted Extrem General: normal to inspection, no clubbing, no cyanosis and edema Psych Mood: congruent mood Affect: normal affect Judgment: judgment good Course Hospital Course: Instead of the patient being given clonidine, the patient was noted to be tachycardic and hypertensive, therefore the patient was given labetalol 10 mg IV. Reevaluation(s) Reevaluation #1: The patient on reexamination continued to be hypertensive. The patient was maintained on a monitor. The patient will be admitted to the hospital for hypertensive urgency. Consultations Consultation #1: The patient's case including history, pertinent physical examination findings, and laboratory studies were discussed with Dr. Hinojosa. It was agreed that the patient would be admitted to the hospitalist service. Initial Documented Vital Signs Temperature 98.6 F 04/07/18 21:46 Pulse Rate 106 H 04/07/18 21:46 Respiratory Rate 20 04/07/18 21:46 Blood Pressure 257/126 H 04/07/18 21:46 Pulse Oximetry 99 04/07/18 21:46 Last Documented Vital Signs Temperature 98.4 F 04/08/18 09:00 Pulse Rate 92 H 04/08/18 16:00 Respiratory Rate 15 04/08/18 16:00 Blood Pressure 186/87 H 04/08/18 16:00 Pulse Oximetry 100 04/08/18 16:00 Medical Decision Making MDM Narrative Medical decision making narrative: The patient was hypertensive on arrival with a systolic blood pressure in the 250s. The patient's repeat blood pressure continue to be elevated although less so. The patient denies having any headache, chest pain, chest pressure. He does however report generalized weakness and a sensation of lightheadedness/dizziness with standing over the last few days. The patient was treated with labetalol for his hypertension. He continued to be hypertensive and reports that he has been compliant with his medication regimen. The patient's diagnostic evaluation is remarkable for A white count of 8, neutrophil predominance at 74.9, hemoglobin 13.8, platelets 159, PT PTT unremarkable, chemistry was remarkable for a CPK of 446 with an MB percent of 2.1, AST 102, alk phos 242,, with an ALT of 74, BNP is within normal limits at 63. Troponin I is 0.05. CT scan of the brain showed no acute abnormality. Chest x-ray showed no acute abnormality. The patient's results were discussed with the patient, including the plan of care. I explained that further testing and/ or monitoring is indicated based on the patient's history, examination, and/ or laboratory findings. Therefore, I recommended admission for additional evaluation. The patient expressed understanding and was agreeable with this plan. The patient was admitted to the hospital in guarded condition and sent to a bed under the care of [facility] service. Differential Diagnosis Differential Diagnosis: Hypertensive emergency with intracranial hemorrhage, versus pruritus from liver disease, versus impetigo, versus allergic reaction to new medication Medical Records Medical records reviewed: Yes I reviewed the patient's medical records. Lab Data Lab results reviewed: Yes I reviewed the patient's lab results. Result diagrams: 04/07/18 22:40 04/08/18 11:46 Lab Results 04/07/18 04/07/18 04/07/18 Range/Units 22:40 22:40 22:40 WBC 8.0 (4.0-11.0) th/mm3 RBC 4.63 (4.50-5.90) mil/mm3 Hgb 13.8 (13.0-17.0) gm/dL Hct 39.3 (39.0-51.0) % MCV 84.8 (80.0-100.0) fL MCH 29.8 (27.0-34.0) pg MCHC 35.2 (32.0-36.0) % RDW 12.8 (11.6-17.2) % Plt Count 159 (150-450) th/mm3 MPV 9.8 (7.0-11.0) fL Neut % (Auto) 74.9 H (16.0-70.0) % Lymph % (Auto) 12.6 (9.0-44.0) % [place] % (Auto) 6.4 (0.0-8.0) % Eos % (Auto) 5.2 H (0.0-4.0) % Baso % (Auto) 0.9 (0.0-2.0) % Neut # (Auto) 6.0 (1.8-7.7) th/mm3 Lymph # (Auto) 1.0 (1.0-4.8) th/mm3 [place] # (Auto) 0.5 (0.0-0.9) th/mm3 Eos # (Auto) 0.4 (0.0-0.4) th/mm3 Baso # (Auto) 0.1 (0.0-0.2) th/mm3 WBC Differential . Differential Comment Auto diff final PT 10.0 (9.8-11.6) sec INR 1.0 Ratio APTT 25.8 (24.3-30.1) sec Sodium 141 (136-145) meq/L Potassium 4.4 (3.5-5.1) meq/L Chloride 109 H (98-107) meq/L Carbon Dioxide 21.9 (21.0-32.0) meq/L Anion Gap 10 (5-15) meq/L BUN 24 H (7-18) mg/dL Creatinine 1.63 H (0.60-1.30) mg/dL Estimated GFR 44 L (>89) mL/min POC Glucose (68-110) mg/dl Random Glucose 294 H (74-106) mg/dL Lactic Acid (0.4-2.0) mmol/L Calcium 7.5 L (8.5-10.1) mg/dL Phosphorus (2.5-4.9) mg/dL Magnesium 1.8 (1.5-2.5) mg/dL Total Bilirubin 0.5 (0.2-1.0) mg/dL AST 102 H (15-37) U/L ALT 74 (12-78) U/L Alkaline Phosphatase 242 H (45-117) U/L Total Creatine Kinase 446 H (39-308) U/L CK-MB (CK-2) 9.2 H (0.5-3.6) ng/mL CK-MB (CK-2) % 2.1 (0.0-4.0) % Troponin I 0.05 (0.02-0.05) ng/mL B-Natriuretic Peptide (0-100) pg/mL Total Protein 6.5 (6.4-8.2) g/dL Albumin 1.8 L (3.4-5.0) g/dL Lipase 91 (73-393) U/L Urine Color (Yellw/Straw) Urine Clarity (Clear) Urine pH (5.0-8.5) Ur Specific [place] (1.002-1.035) Urine Protein (Neg-Trace) mg/dL Urine Glucose (UA) (Negative) mg/dL Urine Ketones (Negative) mg/dL Urine Occult Blood (Negative) Urine Nitrate (Negative) Urine Bilirubin (Negative) Urine Urobilinogen (Less than 2) mg/dL Ur Leukocyte Esterase (Negative) Urine RBC (0-3) /hpf Urine WBC (0-5) /hpf Urine Bacteria (None) /hpf Hyaline Casts (0-3) /lpf Granular Casts (None) /lpf Urine Mucus (Occasional) /lpf Micro UA Comment Urine Culture Comments Nasal Screen MRSA (PCR) (Negative) 04/07/18 04/07/18 04/08/18 Range/Units 22:40 22:40 00:35 WBC (4.0-11.0) th/mm3 RBC (4.50-5.90) mil/mm3 Hgb (13.0-17.0) gm/dL Hct (39.0-51.0) % MCV (80.0-100.0) fL MCH (27.0-34.0) pg MCHC (32.0-36.0) % RDW (11.6-17.2) % Plt Count (150-450) th/mm3 MPV (7.0-11.0) fL Neut % (Auto) (16.0-70.0) % Lymph % (Auto) (9.0-44.0) % [place] % (Auto) (0.0-8.0) % Eos % (Auto) (0.0-4.0) % Baso % (Auto) (0.0-2.0) % Neut # (Auto) (1.8-7.7) th/mm3 Lymph # (Auto) (1.0-4.8) th/mm3 [place] # (Auto) (0.0-0.9) th/mm3 Eos # (Auto) (0.0-0.4) th/mm3 Baso # (Auto) (0.0-0.2) th/mm3 WBC Differential Differential Comment PT (9.8-11.6) sec INR Ratio APTT (24.3-30.1) sec Sodium (136-145) meq/L Potassium (3.5-5.1) meq/L Chloride (98-107) meq/L Carbon Dioxide (21.0-32.0) meq/L Anion Gap (5-15) meq/L BUN (7-18) mg/dL Creatinine (0.60-1.30) mg/dL Estimated GFR (>89) mL/min POC Glucose (68-110) mg/dl Random Glucose (74-106) mg/dL Lactic Acid 0.4 (0.4-2.0) mmol/L Calcium (8.5-10.1) mg/dL Phosphorus (2.5-4.9) mg/dL Magnesium (1.5-2.5) mg/dL Total Bilirubin (0.2-1.0) mg/dL AST (15-37) U/L ALT (12-78) U/L Alkaline Phosphatase (45-117) U/L Total Creatine Kinase (39-308) U/L CK-MB (CK-2) (0.5-3.6) ng/mL CK-MB (CK-2) % (0.0-4.0) % Troponin I (0.02-0.05) ng/mL B-Natriuretic Peptide 63 (0-100) pg/mL Total Protein (6.4-8.2) g/dL Albumin (3.4-5.0) g/dL Lipase (73-393) U/L Urine Color Yellow (Yellw/Straw) Urine Clarity Hazy H (Clear) Urine pH 6.0 (5.0-8.5) Ur Specific [place] 1.018 (1.002-1.035) Urine Protein 500 or greater (Neg-Trace) mg/dL Urine Glucose (UA) 500 or greater (Negative) mg/dL Urine Ketones Negative (Negative) mg/dL Urine Occult Blood Small H (Negative) Urine Nitrate Negative (Negative) Urine Bilirubin Negative (Negative) Urine Urobilinogen 2.0 H (Less than 2) mg/dL Ur Leukocyte Esterase Negative (Negative) Urine RBC 2 (0-3) /hpf Urine WBC 1 (0-5) /hpf Urine Bacteria Rare H (None) /hpf Hyaline Casts 15 (0-3) /lpf Granular Casts 12 (None) /lpf Urine Mucus Few H (Occasional) /lpf Micro UA Comment Culture not ind Urine Culture Comments Culture not ind Nasal Screen MRSA (PCR) (Negative) 04/08/18 04/08/18 04/08/18 Range/Units 02:28 05:40 09:46 WBC (4.0-11.0) th/mm3 RBC (4.50-5.90) mil/mm3 Hgb (13.0-17.0) gm/dL Hct (39.0-51.0) % MCV (80.0-100.0) fL MCH (27.0-34.0) pg MCHC (32.0-36.0) % RDW (11.6-17.2) % Plt Count (150-450) th/mm3 MPV (7.0-11.0) fL Neut % (Auto) (16.0-70.0) % Lymph % (Auto) (9.0-44.0) % [place] % (Auto) (0.0-8.0) % Eos % (Auto) (0.0-4.0) % Baso % (Auto) (0.0-2.0) % Neut # (Auto) (1.8-7.7) th/mm3 Lymph # (Auto) (1.0-4.8) th/mm3 [place] # (Auto) (0.0-0.9) th/mm3 Eos # (Auto) (0.0-0.4) th/mm3 Baso # (Auto) (0.0-0.2) th/mm3 WBC Differential Differential Comment PT (9.8-11.6) sec INR Ratio APTT (24.3-30.1) sec Sodium (136-145) meq/L Potassium (3.5-5.1) meq/L Chloride (98-107) meq/L Carbon Dioxide (21.0-32.0) meq/L Anion Gap (5-15) meq/L BUN (7-18) mg/dL Creatinine (0.60-1.30) mg/dL Estimated GFR (>89) mL/min POC Glucose 328 H 103 (68-110) mg/dl Random Glucose (74-106) mg/dL Lactic Acid (0.4-2.0) mmol/L Calcium (8.5-10.1) mg/dL Phosphorus (2.5-4.9) mg/dL Magnesium (1.5-2.5) mg/dL Total Bilirubin (0.2-1.0) mg/dL AST (15-37) U/L ALT (12-78) U/L Alkaline Phosphatase (45-117) U/L Total Creatine Kinase (39-308) U/L CK-MB (CK-2) (0.5-3.6) ng/mL CK-MB (CK-2) % (0.0-4.0) % Troponin I (0.02-0.05) ng/mL B-Natriuretic Peptide (0-100) pg/mL Total Protein (6.4-8.2) g/dL Albumin (3.4-5.0) g/dL Lipase (73-393) U/L Urine Color (Yellw/Straw) Urine Clarity (Clear) Urine pH (5.0-8.5) Ur Specific [place] (1.002-1.035) Urine Protein (Neg-Trace) mg/dL Urine Glucose (UA) (Negative) mg/dL Urine Ketones (Negative) mg/dL Urine Occult Blood (Negative) Urine Nitrate (Negative) Urine Bilirubin (Negative) Urine Urobilinogen (Less than 2) mg/dL Ur Leukocyte Esterase (Negative) Urine RBC (0-3) /hpf Urine WBC (0-5) /hpf Urine Bacteria (None) /hpf Hyaline Casts (0-3) /lpf Granular Casts (None) /lpf Urine Mucus (Occasional) /lpf Micro UA Comment Urine Culture Comments Nasal Screen MRSA (PCR) Not detected (Negative) 04/08/18 04/08/18 Range/Units 11:46 14:58 WBC (4.0-11.0) th/mm3 RBC (4.50-5.90) mil/mm3 Hgb (13.0-17.0) gm/dL Hct (39.0-51.0) % MCV (80.0-100.0) fL MCH (27.0-34.0) pg MCHC (32.0-36.0) % RDW (11.6-17.2) % Plt Count (150-450) th/mm3 MPV (7.0-11.0) fL Neut % (Auto) (16.0-70.0) % Lymph % (Auto) (9.0-44.0) % [place] % (Auto) (0.0-8.0) % Eos % (Auto) (0.0-4.0) % Baso % (Auto) (0.0-2.0) % Neut # (Auto) (1.8-7.7) th/mm3 Lymph # (Auto) (1.0-4.8) th/mm3 [place] # (Auto) (0.0-0.9) th/mm3 Eos # (Auto) (0.0-0.4) th/mm3 Baso # (Auto) (0.0-0.2) th/mm3 WBC Differential Differential Comment PT (9.8-11.6) sec INR Ratio APTT (24.3-30.1) sec Sodium 145 (136-145) meq/L Potassium 3.6 D (3.5-5.1) meq/L Chloride 113 H (98-107) meq/L Carbon Dioxide 20.3 L (21.0-32.0) meq/L Anion Gap 12 (5-15) meq/L BUN 26 H (7-18) mg/dL Creatinine 1.44 H (0.60-1.30) mg/dL Estimated GFR 50 L (>89) mL/min POC Glucose 307 H (68-110) mg/dl Random Glucose 121 H D (74-106) mg/dL Lactic Acid (0.4-2.0) mmol/L Calcium 8.0 L (8.5-10.1) mg/dL Phosphorus 2.9 (2.5-4.9) mg/dL Magnesium (1.5-2.5) mg/dL Total Bilirubin (0.2-1.0) mg/dL AST (15-37) U/L ALT (12-78) U/L Alkaline Phosphatase (45-117) U/L Total Creatine Kinase (39-308) U/L CK-MB (CK-2) (0.5-3.6) ng/mL CK-MB (CK-2) % (0.0-4.0) % Troponin I (0.02-0.05) ng/mL B-Natriuretic Peptide (0-100) pg/mL Total Protein (6.4-8.2) g/dL Albumin 1.5 L (3.4-5.0) g/dL Lipase (73-393) U/L Urine Color (Yellw/Straw) Urine Clarity (Clear) Urine pH (5.0-8.5) Ur Specific [place] (1.002-1.035) Urine Protein (Neg-Trace) mg/dL Urine Glucose (UA) (Negative) mg/dL Urine Ketones (Negative) mg/dL Urine Occult Blood (Negative) Urine Nitrate (Negative) Urine Bilirubin (Negative) Urine Urobilinogen (Less than 2) mg/dL Ur Leukocyte Esterase (Negative) Urine RBC (0-3) /hpf Urine WBC (0-5) /hpf Urine Bacteria (None) /hpf Hyaline Casts (0-3) /lpf Granular Casts (None) /lpf Urine Mucus (Occasional) /lpf Micro UA Comment Urine Culture Comments Nasal Screen MRSA (PCR) (Negative) Imaging Data Radiologist's impression: ITS Impressions Chest X-Ray 04/07/18 22:10 CONCLUSION: Abdomen/Bladder Ultrasound 04/08/18 00:00 CONCLUSION: Negative exam. Both kidneys and the urinary bladder are sonographically normal. Head CT 04/08/18 00:50 CONCLUSION: 1. No acute intracranial abnormality. ECG Data Attestation: I personally reviewed and interpreted this ECG as follows: Interpretation: The patient had a EKG done on arrival that shows a sinus cardiac heart rate of 110, QRS duration is 86 ms, QTC [address] segment elevation. The patient has T-wave inversions in V1, lead III. Discharge Plan Discharge Disposition Patient Disposition: 30 Still Patient Discharge Details Discharge Problem: Hypertensive urgency Physicians Team ED Provider: Leny Maki Primary Care Provider: Sanjeev Arevalo Attending Provider: Tenzin Hercules Other Providers: Miguel Renteria Discharge Interventions Interventions: ED Discharge Assessment Last Done: 04/08/18 05:19 Vital Signs Last Done: 04/07/18 21:50 Status ED Status: Left Department Discharge Information Discharge Date/Time: 04/08/18 05:20
--- NOTE | 2018-04-07 22:46 | XR ---
EXAM DATE: 04/07/2018 10:37 PM EDT AGE/SEX: 57 years / Male INDICATIONS: Lower extremity swelling. CLINICAL DATA: This is the patient's initial encounter. Patient reports that signs and symptoms have been present for 3 months and indicates a pain score of 0/10. MEDICAL/SURGICAL HISTORY: None. None. COMPARISON: [facility] [place] & [place], 03/10/2018. . FINDINGS: A single AP view of the chest demonstrates the lungs to be symmetrically aerated without evidence of mass, infiltrate or effusion. The cardiomediastinal contours are unremarkable. Osseous structures a re intact. CONCLUSION: Electronically signed by: Phil Webber MD 04/07/2018 10:44 PM EDT
[2018-04-07 23:04] LABS: Baso # (Auto) 0.1 th/mm3 (0.0-0.2); Baso % (Auto) 0.9 % (0.0-2.0); Eos # (Auto) 0.4 th/mm3 (0.0-0.4); Eos % (Auto) 5.2 % (0.0-4.0); Hematocrit 39.3 % (39.0-51.0); Hemoglobin 13.8 gm/dL (13.0-17.0); Lymph % (Auto) 12.6 % (9.0-44.0); Mean Corpuscular HGB Conc 35.2 % (32.0-36.0); Mean Corpuscular Hemoglobin 29.8 pg (27.0-34.0); Mean Corpuscular Volume 84.8 fL (80.0-100.0); Mean Platelet Volume 9.8 fL (7.0-11.0); Mono # (Auto) 0.5 th/mm3 (0.0-0.9); Mono % (Auto) 6.4 % (0.0-8.0); Neut % (Auto) 74.9 % (16.0-70.0); Platelet Count 159 th/mm3 (150-450); Red Blood Count 4.63 mil/mm3 (4.50-5.90); Red Cell Distribution Width 12.8 % (11.6-17.2)
[2018-04-07 23:27] LABS: Activated Partial Thrombo Time 25.8 sec (24.3-30.1)
[2018-04-07 23:28] LABS: Alkaline Phosphatase 242 U/L (45-117); Creatine Kinase 446 U/L (39-308); Total Protein 6.5 g/dL (6.4-8.2); Troponin I 0.05 ng/mL (0.02-0.05)
[2018-04-07 23:32] LABS: Alanine Aminotransferase 74 U/L (12-78); Albumin 1.8 g/dL (3.4-5.0); Anion Gap 10 meq/L (5-15); Aspartate Aminotransferase 102 U/L (15-37); Blood Urea Nitrogen 24 mg/dL (7-18); Calcium 7.5 mg/dL (8.5-10.1); Carbon Dioxide 21.9 meq/L (21.0-32.0); Chloride 109 meq/L (98-107); Glomerular Filtration Rate 44 mL/min (>89); Glucose,Random 294 mg/dL (74-106); Lipase 91 U/L (73-393); Magnesium 1.8 mg/dL (1.5-2.5); Potassium 4.4 meq/L (3.5-5.1); Sodium 141 meq/L (136-145)
[2018-04-07 23:43] LABS: CKMB Percent 2.1 % (0.0-4.0); Creatine Kinase MB 9.2 ng/mL (0.5-3.6)
[2018-04-08] MEDS ORDERED: Labetalol HCl Inj 100 MG/20 ML Vial IV.PUSH ONE (00:50)
[2018-04-08 00:57] LABS: Bacteria,Urine Rare /hpf; Bilirubin,Urine Negative (Negative); Clarity,Urine Hazy (Clear); Color,Urine Yellow (Yellw/Straw); Glucose,Urine (UA) 500 or Greater mg/dL (Negative); Hyaline Casts,Urine 15 /lpf (0-3); Leukocyte Esterase,Urine Negative (Negative); Mucus,Urine Few /lpf (Occasional); Nitrite,Urine Negative (Negative); Specific Gravity,Urine 1.018 (1.002-1.035)
--- NOTE | 2018-04-08 01:46 | CT ---
EXAM DATE: 04/08/2018 1:08 AM EDT AGE/SEX: 57 years / Male INDICATIONS: Dizziness; elevated blood pressure. CLINICAL DATA: This is the patient's initial encounter. Patient reports that signs and symptoms have been present for 1 day and indicates a pain score of 0/10. MEDICAL/SURGICAL HISTORY: Hepatitis C. Hypertension. Cirrhosis. None. RADIATION DOSE: 56.35 CTDI (mGy) COMPARISON: No prior exams available for comparison. TECHNIQUE: CT of the head without contrast. Using automated exposure control and adjustment of the mA and/or kV according to patient size, radiation dose was kept as low as reasonably achievable to ob tain optimal diagnostic quality images. DICOM format image data is available electronically for revi ew and comparison. FINDINGS: Cerebrum: The ventricles are normal for age. No evidence of midline shift, mass lesion, hemorrhage o r acute infarction. No extraaxial fluid collections are seen. Posterior Fossa: The cerebellum and brainstem are intact. The 4th ventricle is midline. The cerebe llopontine angle is unremarkable. Extracranial: The visualized portion of the orbits is intact. Skull: The calvaria is intact. No evidence of skull fracture. CONCLUSION: 1. No acute intracranial abnormality. Electronically signed by: Calvin Paredes MD 04/08/2018 1:45 AM EDT
[2018-04-08] MEDS ORDERED: niCARdipine Inj 25 MG in Sodium Chlor 0.9% Inj 240 ML IV.CONT PRN (02:08)
[2018-04-08] MEDS ORDERED: Dextrose 50% in Water 50 ML Vial IV.PUSH PRN (02:09)
[2018-04-08] MEDS ORDERED: Temazepam 15 MG Capsule PO PRN (02:10)
[2018-04-08] MEDS ORDERED: Acetaminophen 325 MG Tablet PO PRN (02:10)
[2018-04-08] MEDS ORDERED: Bisacodyl 10 MG Supp RECTAL PRN (02:10)
[2018-04-08] MEDS: Heparin - SQ 10,000 UNITS/ML Vial SQ SCH ×3 (02:32→18:54)
--- NOTE | 2018-04-08 02:52 | P.HP ---
History of Present Illness Service: [facility] Primary Care Physician: Sanjeev Arevalo Chief Complaint: Rash History of Present Illness: 57-year-old male with a past medical history significant for diabetes, hepatitis C cirrhosis, and hypertension presents to the emergency department for the evaluation of a rash. The patient reports that he has had a rash on his body that acutely worsened on Sunday after starting a new medication. The patient's primary care provider started him on hydralazine and Keflex on Sunday. The Keflex was prescribed because the patient has several nonhealing wounds on his body. He states he developed a rash all over his extremities, chest and abdomen that has now spread to his face that is extremely itchy starting on Sunday after taking the medication. The patient also complains of lightheadedness and dizziness. His blood pressure on arrival to the emergency department was found to be 257/126. The patient denies any headache or blurry vision. No chest pain or shortness of breath. Positive fatigue. No abdominal pain. No nausea/vomiting/diarrhea. No lateralizing signs/symptoms. Inpatient Certification: I certify that the inpatient services were ordered in accordance with Medicare regulations governing the order. This includes certification that hospital inpatient services are reasonable and necessary and in the case of services not specified as inpatient-only under 42 CFR 419.22(n), that they are appropriately provided as inpatient services in accordance to with the 2-midnight benchmark under 43 CFR 412.3(e) Estimated Total Length of Stay (Days): 2 Plans for Post Hospital Care: Not yet determined Review of Systems All other systems reviewed negative except as stated in HPI [facility] - History History Provided By: Patient - Medical History Medical History: Medical History (Last Reviewed 04/07/18 @ 23:33 by Leny Maki MD) Diabetes HTN (hypertension) Hep C w/o coma, chronic Liver cirrhosis - Surgical History Surgical History: Surgical History (Last Updated 04/07/18 @ 21:50 by Stephy Guan) S/P surgical manipulation of ankle joint - Tobacco History Second Hand Smoke Exposure: No Tobacco Use In Past 30 Days: No Smoking Status: Former smoker - Alcohol History How Often Do You Have a Drink Containing Alcohol: Never - Substance Use History Substance History: No History of Abuse - Travel History Recent Travel in the [place] Within the Last 8 Weeks: No Recent Travel Out of the Country Within the Last 8 Weeks: No - Immunization History Tetanus Immunization: <5 Years Hx Influenza Vaccine This Season: No Medications and Allergies Active Medications: Active Medications Acetaminophen (Tylenol) 650 mg PO Q4H PRN PRN Reason: Temp > 100.4 Al Hydroxide/Mg Hydroxide (Milk Of Magnesia Liq) 30 ml PO Q12H PRN PRN Reason: Mild Constipation Bisacodyl (Dulcolax Supp) 10 mg RECTAL DAILY PRN PRN Reason: SEVERE CONSITIPATION Cephalexin Monohydrate (Keflex) 500 mg PO Q6H [facility] Last Admin: 04/08/18 02:33 Dose: 500 mg Dextrose (D50w Vial) 50 ml IV.PUSH UNSCH PRN PRN Reason: PER HYPOGLYCEMIA PROTOCOL Diphenhydramine HCl (Benadryl Inj) 25 mg IV.PUSH Q6H PRN PRN Reason: itching/hives Furosemide (Lasix) 20 mg PO DAILY [facility] Gabapentin (Neurontin) 100 mg PO TID [place] Glucagon (Glucagon Inj) 1 mg OTHER PRN PRN PRN Reason: for Hypoglycemia Protocol Heparin Sodium (Porcine) (Heparin Inj) 5,000 units SQ Q8H [facility] Last Admin: 04/08/18 02:32 Dose: 5,000 units Nicardipine HCl 25 mg/ Sodium (Chloride) 250 mls @ 50 mls/hr IV.CONT TITRATE PRN; Protocol PRN Reason: Per Protocol Last Admin: 04/08/18 02:33 Dose: 5 mg/hr, 50 mls/hr Insulin Aspart (Novolog Insulin Suppl Scale Inj) 0 unit SQ ACHS AND 3AM [place]; Protocol Lactulose (Lactulose Liq) 30 ml PO DAILY PRN PRN Reason: SEVERE CONSITIPATION Lisinopril (Prinivil) 10 mg PO DAILY [facility] Non-Formulary Medication (Levothyroxine [Levothyroxine]) 75 mcg PO DAILY [facility] Ondansetron HCl (Zofran Inj) 4 mg IV.PUSH Q6H PRN PRN Reason: NAUSEA OR VOMITING Senna/Docusate Sodium (Gricelda-Colace) 1 tab PO BID [facility] Sennosides (Senokot) 17.2 mg PO Q12H PRN PRN Reason: Moderate Constipation Sodium Chloride (Ns Flush) 2 ml IV.FLUSH UNSCH PRN PRN Reason: FLUSH AFTER USING IV ACCESS Temazepam (Restoril) 15 mg PO HS PRN PRN Reason: INSOMNIA Allergies Allergy/AdvReac Type Severity Reaction Status Date / Time No Known Allergies Allergy Verified 04/07/18 21:46 Home Medications Medication Instructions Recorded Confirmed Type cephalexin 500 mg PO Q6H 04/08/18 04/08/18 History doxazosin 2 mg PO 04/08/18 History furosemide 20 mg PO DAILY 04/08/18 04/08/18 History gabapentin 100 mg PO TID 04/08/18 04/08/18 History hydralazine 50 mg PO BID 04/08/18 04/08/18 History levothyroxine 75 mcg PO DAILY 04/08/18 04/08/18 History lisinopril 10 mg PO DAILY 04/08/18 04/08/18 History Exam Vital signs: Vital Signs 04/07/18 21:46 04/07/18 21:50 04/07/18 22:32 Temperature 98.6 F Pulse Rate 106 H 110 H Respiratory Rate 20 18 18 Blood Pressure 257/126 H Pulse Oximetry 99 96 04/07/18 22:33 04/08/18 00:34 04/08/18 02:36 Temperature Pulse Rate 47 L 111 H 106 H Respiratory Rate 18 Blood Pressure 239/118 H 225/119 H Pulse Oximetry 96 100 Intake & Output 04/07/18 04/07/18 04/08/18 06:59 18:59 06:59 Weight 104.326 kg Narrative: Gen.: No acute distress Head: Normocephalic. Atraumatic. EENT: Pupils equal round and reactive to light. Nose without drainage. Airway intact. Throat without injection. Cardiovascular: Regular rate and rhythm. No murmurs, rubs or gallops. Respiratory: Lungs clear to auscultation bilaterally. No wheezes or rhonchi. Abdomen: Soft, nontender, nondistended. No peritoneal signs. Musculoskeletal: No gross deformities. No edema. Skin: Papular mildly raised erythematous rash covering all 4 extremities and chest. Some areas of excoriation present with lesions in various stages of healing. Patient with chronic nonhealing wounds on the bilateral medial ankle and left peralta. Mild surrounding erythema without drainage. Neuro: Sensory and motor grossly intact. Cranial nerves II through XII grossly intact. Psych: Appropriate mood and affect Results - Labs CBC & Chem 7: 04/07/18 22:40 04/07/18 22:40 Labs: Laboratory Results - last 24 hr 04/07/18 04/07/18 04/07/18 22:40 22:40 22:40 WBC 8.0 RBC 4.63 Hgb 13.8 Hct 39.3 MCV 84.8 MCH 29.8 MCHC 35.2 RDW 12.8 Plt Count 159 MPV 9.8 Neut % (Auto) 74.9 H Lymph % (Auto) 12.6 [place] % (Auto) 6.4 Eos % (Auto) 5.2 H Baso % (Auto) 0.9 Neut # (Auto) 6.0 Lymph # (Auto) 1.0 [place] # (Auto) 0.5 Eos # (Auto) 0.4 Baso # (Auto) 0.1 WBC Differential . Differential Comment Auto diff final PT 10.0 INR 1.0 APTT 25.8 Sodium 141 Potassium 4.4 Chloride 109 H Carbon Dioxide 21.9 Anion Gap 10 BUN 24 H Creatinine 1.63 H Estimated GFR 44 L POC Glucose Random Glucose 294 H Lactic Acid Calcium 7.5 L Magnesium 1.8 Total Bilirubin 0.5 AST 102 H ALT 74 Alkaline Phosphatase 242 H Total Creatine Kinase 446 H CK-MB (CK-2) 9.2 H CK-MB (CK-2) % 2.1 Troponin I 0.05 B-Natriuretic Peptide Total Protein 6.5 Albumin 1.8 L Lipase 91 Urine Color Urine Clarity Urine pH Ur Specific [place] Urine Protein Urine Glucose (UA) Urine Ketones Urine Occult Blood Urine Nitrate Urine Bilirubin Urine Urobilinogen Ur Leukocyte Esterase Urine RBC Urine WBC Urine Bacteria Hyaline Casts Granular Casts Urine Mucus Micro UA Comment Urine Culture Comments 04/07/18 04/07/18 04/08/18 22:40 22:40 00:35 WBC RBC Hgb Hct MCV MCH MCHC RDW Plt Count MPV Neut % (Auto) Lymph % (Auto) [place] % (Auto) Eos % (Auto) Baso % (Auto) Neut # (Auto) Lymph # (Auto) [place] # (Auto) Eos # (Auto) Baso # (Auto) WBC Differential Differential Comment PT INR APTT Sodium Potassium Chloride Carbon Dioxide Anion Gap BUN Creatinine Estimated GFR POC Glucose Random Glucose Lactic Acid 0.4 Calcium Magnesium Total Bilirubin AST ALT Alkaline Phosphatase Total Creatine Kinase CK-MB (CK-2) CK-MB (CK-2) % Troponin I B-Natriuretic Peptide 63 Total Protein Albumin Lipase Urine Color Yellow Urine Clarity Hazy H Urine pH 6.0 Ur Specific [place] 1.018 Urine Protein 500 or greater Urine Glucose (UA) 500 or greater Urine Ketones Negative Urine Occult Blood Small H Urine Nitrate Negative Urine Bilirubin Negative Urine Urobilinogen 2.0 H Ur Leukocyte Esterase Negative Urine RBC 2 Urine WBC 1 Urine Bacteria Rare H Hyaline Casts 15 Granular Casts 12 Urine Mucus Few H Micro UA Comment Culture not ind Urine Culture Comments Culture not ind 04/08/18 02:28 WBC RBC Hgb Hct MCV MCH MCHC RDW Plt Count MPV Neut % (Auto) Lymph % (Auto) [place] % (Auto) Eos % (Auto) Baso % (Auto) Neut # (Auto) Lymph # (Auto) [place] # (Auto) Eos # (Auto) Baso # (Auto) WBC Differential Differential Comment PT INR APTT Sodium Potassium Chloride Carbon Dioxide Anion Gap BUN Creatinine Estimated GFR POC Glucose 328 H Random Glucose Lactic Acid Calcium Magnesium Total Bilirubin AST ALT Alkaline Phosphatase Total Creatine Kinase CK-MB (CK-2) CK-MB (CK-2) % Troponin I B-Natriuretic Peptide Total Protein Albumin Lipase Urine Color Urine Clarity Urine pH Ur Specific [place] Urine Protein Urine Glucose (UA) Urine Ketones Urine Occult Blood Urine Nitrate Urine Bilirubin Urine Urobilinogen Ur Leukocyte Esterase Urine RBC Urine WBC Urine Bacteria Hyaline Casts Granular Casts Urine Mucus Micro UA Comment Urine Culture Comments - Imaging Impressions Chest X-Ray 04/07/18 22:10 CONCLUSION: Head CT 04/08/18 00:50 CONCLUSION: 1. No acute intracranial abnormality. Caprini VTE Risk Assessment Caprini VTE Risk Assessment: No/Low Risk (score <= 1) Caprini Risk Assessment Model: Point Value = 1 Point Value = 2 Point Value = 3 Point Value = 5 Age 41-60 Minor surgery BMI > 25 kg/m2 Swollen legs Varicose veins or History of unexplained or recurrent spontaneous Oral contraceptives or hormone replacement Sepsis (< 1 month) Serious lung disease, including pneumonia (< 1 month) Abnormal pulmonary function Acute myocardial infarction Congestive heart failure (< 1 month) History of inflammatory bowel disease Medical patient at bed rest Age 61-74 Arthroscopic surgery Major open surgery (> 45 min) Laparoscopic surgery (> 45 min) Malignancy Confined to bed (> 72 hours) Immobilizing plaster cast Central venous access Age >= 75 History of VTE Family history of VTE Factor V Leiden Prothrombin [id number] Lupus anticoagulant Anticardiolipin antibodies Elevated serum homocysteine Heparin-induced thrombocytopenia Other congenital or acquired thrombophilia Stroke (< 1 month) Elective arthroplasty Hip, pelvis, or leg fracture Acute spinal cord injury (< 1 month) Prophylaxis Regimen: Total Risk Factor Score Risk Level Prophylaxis Regimen 0-1 Low Early ambulation 2 Moderate Order ONE of the following: *Sequential Compression Device (SCD) *Heparin 5000 units SQ BID 3-4 Higher Order ONE of the following medications: *Heparin 5000 units SQ TID *Enoxaparin/Lovenox 40 mg SQ daily (WT < 150 kg, CrCl > 30 mL/min) *Enoxaparin/Lovenox 30 mg SQ daily (WT < 150 kg, CrCl > 10-29 mL/min) *Enoxaparin/Lovenox 30 mg SQ BID (WT < 150 kg, CrCl > 30 mL/min) AND/OR *Sequential Compression Device (SCD) 5 or more Highest Order ONE of the following medications: *Heparin 5000 units SQ TID (Preferred with Epidurals) *Enoxaparin/Lovenox 40 mg SQ daily (WT < 150 kg, CrCl > 30 mL/min) *Enoxaparin/Lovenox 30 mg SQ daily (WT < 150 kg, CrCl > 10-29 mL/min) *Enoxaparin/Lovenox 30 mg SQ BID (WT < 150 kg, CrCl > 30 mL/min) AND *Sequential Compression Device (SCD) Assessment and Plan - Plan Assessment/plan: 1. Hypertensive crisis Status post nitro and labetalol in the ED Cardene drip Holding home hydralazine given possible allergic reaction Wean drip as tolerated 2. Rash/allergic reaction Holding Keflex and hydralazine IV Benadryl 3. Chronic wounds Patient with multiple chronic wounds without obvious signs of infection Started on Keflex by his primary care provider on Sunday DC Keflex for possible allergic reaction Bactrim DS 4. Diabetes mellitus Patient's compliance with his home insulin is intermittent due to financial constraints Sliding-scale insulin Monitor blood glucose 5. Hepatitis C/cirrhosis Continue outpatient follow-up FEN Diabetic diet Electrolytes: Monitor and replete as needed
[2018-04-08] MEDS: Insulin NovoLOG Aspart Correctional Sugar Inj SQ SCH ×5 (04:22→21:11)
--- NOTE | 2018-04-08 07:35 | P.PN ---
Subjective Interval history: F/u HTN and rash. No padron, dizziness, cp and sob. Tired from not sleeping 2/2 itching. Has kidney MD in [place] Physical Exam Vital signs: Vital Signs 04/07/18 21:46 04/07/18 21:50 04/07/18 22:32 Temperature 98.6 F Pulse Rate 106 H 110 H Respiratory Rate 20 18 18 Blood Pressure 257/126 H Pulse Oximetry 99 96 04/07/18 22:33 04/08/18 00:34 04/08/18 02:36 Temperature Pulse Rate 47 L 111 H 106 H Respiratory Rate 18 Blood Pressure 239/118 H 225/119 H Pulse Oximetry 96 100 04/08/18 03:51 04/08/18 03:59 Temperature Pulse Rate 110 H Respiratory Rate 16 Blood Pressure 150/76 H Pulse Oximetry 100 100 Intake & Output 04/07/18 04/08/18 04/08/18 18:59 06:59 18:59 Weight 104 kg Other: Weight On Admission 104 kg Narrative: Gen.: No acute distress Head: Normocephalic. Atraumatic. Cardiovascular: Regular rate and rhythm. No murmurs, rubs or gallops. Respiratory: Lungs clear to auscultation bilaterally. No wheezes or rhonchi. Abdomen: Soft, nontender, nondistended. No peritoneal signs. Musculoskeletal: No gross deformities. No edema. Skin: Papular mildly raised erythematous rash covering all 4 extremities and chest. Some areas of excoriation present with lesions in various stages of healing. Patient with chronic nonhealing wounds on the bilateral medial ankle and left peralta. No signs of infection Neuro: Sensory and motor grossly intact. Cranial nerves II through XII grossly intact. Results - Labs CBC & Chem 7: 04/07/18 22:40 04/07/18 22:40 Laboratory Results - last 24 hr 04/07/18 04/07/18 04/07/18 22:40 22:40 22:40 WBC 8.0 RBC 4.63 Hgb 13.8 Hct 39.3 MCV 84.8 MCH 29.8 MCHC 35.2 RDW 12.8 Plt Count 159 MPV 9.8 Neut % (Auto) 74.9 H Lymph % (Auto) 12.6 [place] % (Auto) 6.4 Eos % (Auto) 5.2 H Baso % (Auto) 0.9 Neut # (Auto) 6.0 Lymph # (Auto) 1.0 [place] # (Auto) 0.5 Eos # (Auto) 0.4 Baso # (Auto) 0.1 WBC Differential . Differential Comment Auto diff final PT 10.0 INR 1.0 APTT 25.8 Sodium 141 Potassium 4.4 Chloride 109 H Carbon Dioxide 21.9 Anion Gap 10 BUN 24 H Creatinine 1.63 H Estimated GFR 44 L POC Glucose Random Glucose 294 H Lactic Acid Calcium 7.5 L Magnesium 1.8 Total Bilirubin 0.5 AST 102 H ALT 74 Alkaline Phosphatase 242 H Total Creatine Kinase 446 H CK-MB (CK-2) 9.2 H CK-MB (CK-2) % 2.1 Troponin I 0.05 B-Natriuretic Peptide Total Protein 6.5 Albumin 1.8 L Lipase 91 Urine Color Urine Clarity Urine pH Ur Specific [place] Urine Protein Urine Glucose (UA) Urine Ketones Urine Occult Blood Urine Nitrate Urine Bilirubin Urine Urobilinogen Ur Leukocyte Esterase Urine RBC Urine WBC Urine Bacteria Hyaline Casts Granular Casts Urine Mucus Micro UA Comment Urine Culture Comments 04/07/18 04/07/18 04/08/18 22:40 22:40 00:35 WBC RBC Hgb Hct MCV MCH MCHC RDW Plt Count MPV Neut % (Auto) Lymph % (Auto) [place] % (Auto) Eos % (Auto) Baso % (Auto) Neut # (Auto) Lymph # (Auto) [place] # (Auto) Eos # (Auto) Baso # (Auto) WBC Differential Differential Comment PT INR APTT Sodium Potassium Chloride Carbon Dioxide Anion Gap BUN Creatinine Estimated GFR POC Glucose Random Glucose Lactic Acid 0.4 Calcium Magnesium Total Bilirubin AST ALT Alkaline Phosphatase Total Creatine Kinase CK-MB (CK-2) CK-MB (CK-2) % Troponin I B-Natriuretic Peptide 63 Total Protein Albumin Lipase Urine Color Yellow Urine Clarity Hazy H Urine pH 6.0 Ur Specific [place] 1.018 Urine Protein 500 or greater Urine Glucose (UA) 500 or greater Urine Ketones Negative Urine Occult Blood Small H Urine Nitrate Negative Urine Bilirubin Negative Urine Urobilinogen 2.0 H Ur Leukocyte Esterase Negative Urine RBC 2 Urine WBC 1 Urine Bacteria Rare H Hyaline Casts 15 Granular Casts 12 Urine Mucus Few H Micro UA Comment Culture not ind Urine Culture Comments Culture not ind 04/08/18 02:28 WBC RBC Hgb Hct MCV MCH MCHC RDW Plt Count MPV Neut % (Auto) Lymph % (Auto) [place] % (Auto) Eos % (Auto) Baso % (Auto) Neut # (Auto) Lymph # (Auto) [place] # (Auto) Eos # (Auto) Baso # (Auto) WBC Differential Differential Comment PT INR APTT Sodium Potassium Chloride Carbon Dioxide Anion Gap BUN Creatinine Estimated GFR POC Glucose 328 H Random Glucose Lactic Acid Calcium Magnesium Total Bilirubin AST ALT Alkaline Phosphatase Total Creatine Kinase CK-MB (CK-2) CK-MB (CK-2) % Troponin I B-Natriuretic Peptide Total Protein Albumin Lipase Urine Color Urine Clarity Urine pH Ur Specific [place] Urine Protein Urine Glucose (UA) Urine Ketones Urine Occult Blood Urine Nitrate Urine Bilirubin Urine Urobilinogen Ur Leukocyte Esterase Urine RBC Urine WBC Urine Bacteria Hyaline Casts Granular Casts Urine Mucus Micro UA Comment Urine Culture Comments - Imaging Impressions Chest X-Ray 04/07/18 22:10 CONCLUSION: Head CT 04/08/18 00:50 CONCLUSION: 1. No acute intracranial abnormality. Assessment and Plan - Assessment (1) Hypertensive urgency Code(s): I16.0 - Hypertensive urgency Status: Acute (2) Hypertensive nephropathy Code(s): I12.9 - Hypertensive chronic kidney disease with stage 1 through stage 4 chronic kidney disease, or unspecified chronic kidney disease Status: Acute - Plan 1. Hypertensive urgency. Improving Status post nitro and labetalol in the ED Wean and discontinue Cardene drip keep blood pressure less than 160/90 Holding home hydralazine given possible allergic reaction Continue Lasix, lisinopril and restart hydralazine 2. Rash/allergic reaction Holding Keflex and hydralazine IV Benadryl. Add scheduled Atarax for 1 day and as needed topical Benadryl 3. Chronic wounds Patient with multiple chronic wounds without obvious signs of infection Started on Keflex by his primary care provider on Sunday DC Keflex for possible allergic reaction We will also discontinue Bactrim DS in light of kidney dysfunction 4. Diabetes mellitus Patient's compliance with his home insulin is intermittent due to financial constraints Sliding-scale insulin Monitor blood glucose and check A1c. Diabetic education likely will need insulin 5. Hepatitis C/cirrhosis with elevated AST Continue outpatient follow-up 6. Acute versus chronic kidney disease likely hypertensive nephropathy. Nonoliguric. CK not elevated. Will consult nephrology 7. DVT prophylaxis with subcu heparin FEN Diabetic diet Electrolytes: Monitor and replete as needed Discharge Planning: home when ready still on cardene drip
[2018-04-08] MEDS ORDERED: Labetalol HCl Inj 100 MG/20 ML Vial IV.PUSH PRN (07:48)
[2018-04-08] MEDS ORDERED: Furosemide 20 MG Tablet PO SCH (09:00)
[2018-04-08] MEDS ORDERED: Lisinopril 10 MG Tablet PO SCH (09:00)
[2018-04-08] MEDS: Gabapentin 100 MG Capsule PO SCH ×3 (09:31→18:54)
[2018-04-08] MEDS: Non-Formulary Drug (Levothyroxine [Levothyroxine] 75 MCG) PO SCH (09:31)
[2018-04-08] MEDS: Senna/Docusate Sodium 8.6/50 MG Tablet PO SCH ×2 (09:33→21:04)
[2018-04-08] MEDS: diphenhydrAMINE 2%/Zinc Cream 30 GM Tube TOPICAL PRN (09:35)
--- NOTE | 2018-04-08 09:57 | ECG ---
Date Performed: 04/08/2018 Time Performed: 00:29:42 PTAGE: 57 years EKG: SINUS TACHYCARDIA LOW QRS VOLTAGE IN PRECORDIAL LEADS MINIMAL ST DEPRESSION ABNORMAL RHYTHM ECG Since the PREVIOUS TRACING , no significant change noted PREVIOUS TRACIN03/10/2018 13.12 DOCTOR: Jerson Barrios Interpretating Date/Time 04/08/2018 09:54:13
--- NOTE | 2018-04-08 11:20 | P.CONNP ---
History of Present Illness Consult date: 04/08/18 Primary Care Provider: Sanjeev Arevalo Chief Complaint: Rash History of Present Illness: 57-year-old male with a known history of hypertension and apparently chronic kidney disease. Serum creatinine level noted to have been 1.25 March 10 subsequently 1.44 March 20, 2018. According to the patient he just recently established with a director compliance in [place] and is scheduled to have his second visit with that director compliance later this month. Of interest he also has a history of hepatitis C untreated. Has not followed up with a liver specialist for some time now. Initially presented to this institution for a rash. He was recently started on hydralazine and Keflex about a week ago. Those medications have since been discontinued since admission. Indicating he is otherwise compliant with his hypertensive medications. Outpatient medications include lisinopril 10 mg daily , furosemide 20 mg daily, doxazosin? 2 mg at bedtime as well as the hydralazine mentioned above. Denies using NSAIDs for analgesia as an outpatient. Review of Systems All other systems reviewed negative except as stated in HPI PMFSH - History History Provided By: Patient, Medical Record - Medical / Surgical Hx Neg / Unobtainable Medical Problems Denied: Yes - Medical History Medical History: Medical History (Last Updated 04/08/18 @ 11:10 by Miguel Renteria MD) Chronic kidney disease (CKD), stage III (moderate) Diabetes HTN (hypertension) Hep C w/o coma, chronic Liver cirrhosis - Surgical History Surgical History: Surgical History (Last Reviewed 04/08/18 @ 11:10 by Miguel Renteria MD) S/P surgical manipulation of ankle joint - Tobacco History Second Hand Smoke Exposure: No Tobacco Use In Past 30 Days: No Smoking Status: Former smoker - Alcohol History How Often Do You Have a Drink Containing Alcohol: Never - Travel History Recent Travel in the [place] Within the Last 8 Weeks: No Recent Travel Out of the Country Within the Last 8 Weeks: No - Immunization History Tetanus Immunization: <5 Years Hx Influenza Vaccine This Season: No Medications and Allergies Active Medications: Active Medications Acetaminophen (Tylenol) 650 mg PO Q4H PRN PRN Reason: Temp > 100.4 Bisacodyl (Dulcolax Supp) 10 mg RECTAL DAILY PRN PRN Reason: SEVERE CONSITIPATION Chlorhexidine Gluconate (Chlorhexidine 2% Cloth) 3 pack TOPICAL DAILY@0400 [facility] Stop: 04/14/18 03:59 Chlorhexidine Gluconate (Chlorhexidine 2% Cloth) 3 pack TOPICAL DAILY@0400 PRN PRN Reason: Extra cloth needed Stop: 04/14/18 03:59 Clonidine HCl (Catapres) 0.1 mg PO Q6H PRN PRN Reason: SEE LABEL COMMENTS Dextrose (D50w Vial) 50 ml IV.PUSH UNSCH PRN PRN Reason: PER HYPOGLYCEMIA PROTOCOL Diphenhydramine HCl (Benadryl Inj) 25 mg IV.PUSH Q6H PRN PRN Reason: itching/hives Last Admin: 04/08/18 09:35 Dose: 25 mg Doxazosin Mesylate (Cardura) 2 mg PO DAILY [facility] Last Admin: 04/08/18 09:33 Dose: 2 mg Furosemide (Lasix) 20 mg PO DAILY [facility] Last Admin: 04/08/18 09:31 Dose: 20 mg Gabapentin (Neurontin) 100 mg PO TID [facility] Last Admin: 04/08/18 09:31 Dose: 100 mg Glucagon (Glucagon Inj) 1 mg OTHER PRN PRN PRN Reason: for Hypoglycemia Protocol Heparin Sodium (Porcine) (Heparin Inj) 5,000 units SQ Q8H [facility] Last Admin: 04/08/18 09:30 Dose: 5,000 units Hydroxyzine HCl (Atarax) 10 mg PO Q8HR [facility] Stop: 04/09/18 08:44 Last Admin: 04/08/18 09:31 Dose: 10 mg Nicardipine HCl 25 mg/ Sodium (Chloride) 250 mls @ 50 mls/hr IV.CONT TITRATE PRN; Protocol PRN Reason: Per Protocol Last Admin: 04/08/18 02:33 Dose: 5 mg/hr, 50 mls/hr Insulin Aspart (Novolog Insulin Suppl Scale Inj) 0 unit SQ ACHS AND 3AM SHIRLEY; Protocol Last Admin: 04/08/18 10:43 Dose: Not Given Labetalol HCl (Trandate Inj) 10 mg IV.PUSH Q4H PRN PRN Reason: SEE LABEL COMMENTS Lactulose (Lactulose Liq) 30 ml PO DAILY PRN PRN Reason: SEVERE CONSITIPATION Lisinopril (Prinivil) 10 mg PO DAILY [facility] Last Admin: 04/08/18 09:31 Dose: 10 mg Non-Formulary Medication (Levothyroxine [Levothyroxine]) 75 mcg PO DAILY [facility] Last Admin: 04/08/18 09:31 Dose: 75 mcg Ondansetron HCl (Zofran Inj) 4 mg IV.PUSH Q6H PRN PRN Reason: NAUSEA OR VOMITING Senna/Docusate Sodium (Gricelda-Colace) 1 tab PO BID [facility] Last Admin: 04/08/18 09:33 Dose: Not Given Sennosides (Senokot) 17.2 mg PO Q12H PRN PRN Reason: Moderate Constipation Sodium Chloride (Ns Flush) 2 ml IV.FLUSH UNSCH PRN PRN Reason: FLUSH AFTER USING IV ACCESS Temazepam (Restoril) 15 mg PO HS PRN PRN Reason: INSOMNIA Zinc Acetate/Diphenhydramine (Benadryl 2% Cream) 1 applicatio TOPICAL Q8H PRN PRN Reason: ITCHING AND/OR RASH Last Admin: 04/08/18 09:35 Dose: 1 applicatio Allergies Allergy/AdvReac Type Severity Reaction Status Date / Time No Known Allergies Allergy Verified 04/07/18 21:46 Home Medications Medication Instructions Recorded Confirmed Type cephalexin 500 mg PO Q6H 04/08/18 04/08/18 History doxazosin 2 mg PO 04/08/18 History furosemide 20 mg PO DAILY 04/08/18 04/08/18 History gabapentin 100 mg PO TID 04/08/18 04/08/18 History hydralazine 50 mg PO BID 04/08/18 04/08/18 History levothyroxine 75 mcg PO DAILY 04/08/18 04/08/18 History lisinopril 10 mg PO DAILY 04/08/18 04/08/18 History Exam Vital signs: Vital Signs 04/07/18 21:46 04/07/18 21:50 04/07/18 22:32 Temperature 98.6 F Pulse Rate 106 H 110 H Respiratory Rate 20 18 18 Blood Pressure 257/126 H Pulse Oximetry 99 96 04/07/18 22:33 04/08/18 00:34 04/08/18 02:36 Temperature Pulse Rate 47 L 111 H 106 H Respiratory Rate 18 Blood Pressure 239/118 H 225/119 H Pulse Oximetry 96 100 04/08/18 03:51 04/08/18 03:59 04/08/18 07:35 Temperature Pulse Rate 110 H Respiratory Rate 16 Blood Pressure 150/76 H Pulse Oximetry 100 100 99 Intake & Output 04/07/18 04/08/18 04/08/18 18:59 06:59 18:59 Weight 104 kg Other: Weight On Admission 104 kg Narrative: GENERAL: Patient not in respiratory distress appears well-nourished. SKIN: Warm and dry. HEAD: Normocephalic. EYES: No scleral icterus. No injection or drainage. NECK: Supple, trachea midline. No JVD or lymphadenopathy. CARDIOVASCULAR: Regular rate and rhythm without murmurs, gallops, or rubs. RESPIRATORY: Breath sounds equal bilaterally. No accessory muscle use. GASTROINTESTINAL: Abdomen soft, non-tender, nondistended. MUSCULOSKELETAL: No cyanosis, 2+ pitting edema lower legs, ankles and feet. BACK: Nontender without obvious deformity. No CVA tenderness. Results - Lab Results 04/07/18 22:40 04/07/18 22:40 Most recent lab results Calcium 7.5 mg/dL (8.5-10.1) L 04/07/18 22:40 Magnesium 1.8 mg/dL (1.5-2.5) 04/07/18 22:40 Assessment and Plan - Assessment (1) Hypertensive urgency Code(s): I16.0 - Hypertensive urgency Status: Acute (2) Chronic kidney disease, stage III (moderate) Code(s): N18.3 - Chronic kidney disease, stage 3 (moderate) Status: Acute Plan: Most likely secondary to nephrosclerosis of hypertension and aging. Unsure if hepatitis C could also be playing a role. The patient is already established with a director compliance in [place]. Will defer further evaluation of same to that physician and the patient is scheduled for follow-up later this month. Medications should be adjusted for the patient's estimated GFR if clinically indicated. Avoid agents with significant potential for nephrotoxicity possible including NSAIDs for analgesia, iodine contrast agents. Gadolinium is contraindicated if the GFR is below 30. (3) Chronic hepatitis C Code(s): B18.2 - Chronic viral hepatitis C Status: Acute Plan: Apparently he has a history of chronic hepatitis C although I have no serological data in the hospitals EMR to confirm same. Patient was advised that it would be prudent for him to follow-up with a flash drier operator/ clear coat sprayer to determine whether or not it would be beneficial for him to be treated if he does indeed have chronic hepatitis C. Will defer serological screening and further evaluation of primary care physician in-house. Patient resides in another city and I indicated to him it would be prudent to establish with a GI liver specialist locally. - Plan Increase lisinopril to 20 mg daily. Avoid using calcium channel zoie for the present this patient indicating he developed increasing edema with amlodipine in the past. Cardura at bedtime. Increase furosemide to 20 mg twice daily in view of fluid retention and may also help to improve his blood pressure.
[2018-04-08 12:51] LABS: Albumin 1.5 g/dL (3.4-5.0); Carbon Dioxide 20.3 meq/L (21.0-32.0); Phosphorus 2.9 mg/dL (2.5-4.9); Potassium 3.6 meq/L (3.5-5.1)
--- NOTE | 2018-04-08 14:15 | US ---
EXAM DATE: 04/08/2018 1:50 PM EDT AGE/SEX: 57 years / Male INDICATIONS: Increased lab values. CLINICAL DATA: This is the patient's subsequent encounter. Patient reports that signs and symptoms h ave been present for 1 day and indicates a pain score of 2/10. MEDICAL/SURGICAL HISTORY: Cirrhosis. Hepatitis C. Diabetes. Renal disease. Hypertension. . Ankle surgery. COMPARISON: [facility] [place] ABDOMEN - LIVER, 03/10/2018. . MEASUREMENTS: Right Kidney:__11.8 x 6.8 x 6.1 cm Left Kidney:__12.5 x 6.4 x 6.9 cm FINDINGS: Right Kidney: Normal echotexture and cortical thickness. No mass or hydronephrosis. Left Kidney: Normal echotexture and cortical thickness. No mass or hydronephrosis. Bladder: Within normal limits given the degree of distension. Other: None. CONCLUSION: Negative exam. Both kidneys and the urinary bladder are sonographically normal. Electronically signed by: Art Castrejon MD 04/08/2018 2:13 PM EDT
[2018-04-08] MEDS: Furosemide 20 MG Tablet PO SCH ×2 (14:53→18:53)
[2018-04-08 17:17] LABS: Hemoglobin A1c 8.1 % (4.3-6.0)
[2018-04-08] MEDS: Lisinopril 10 MG Tablet PO SCH (21:04)
[2018-04-09] MEDS: Heparin - SQ 10,000 UNITS/ML Vial SQ SCH ×3 (03:06→17:54)
[2018-04-09] MEDS: Insulin NovoLOG Aspart Correctional Sugar Inj SQ SCH ×5 (03:06→20:37)
[2018-04-09] MEDS ORDERED: Chlorhexidine Gluconate 2% 1 Pack (2 Cloths) TOPICAL PRN (04:00)
[2018-04-09] MEDS: Chlorhexidine Gluconate 2% 1 Pack (2 Cloths) TOPICAL SCH ×2 (06:08→21:33)
[2018-04-09 08:42] LABS: Baso % (Auto) 0.6 % (0.0-2.0); Eos # (Auto) 0.4 th/mm3 (0.0-0.4); Eos % (Auto) 7.7 % (0.0-4.0); Hematocrit 35.7 % (39.0-51.0); Hemoglobin 12.4 gm/dL (13.0-17.0); Lymph # (Auto) 1.2 th/mm3 (1.0-4.8); Lymph % (Auto) 25.4 % (9.0-44.0); Mean Corpuscular HGB Conc 34.7 % (32.0-36.0); Mean Corpuscular Hemoglobin 30.1 pg (27.0-34.0); Mean Corpuscular Volume 86.5 fL (80.0-100.0); Mean Platelet Volume 9.7 fL (7.0-11.0); Mono # (Auto) 0.4 th/mm3 (0.0-0.9); Mono % (Auto) 8.8 % (0.0-8.0); Neut # (Auto) 2.8 th/mm3 (1.8-7.7); Neut % (Auto) 57.5 % (16.0-70.0); Platelet Count 130 th/mm3 (150-450); Red Blood Count 4.12 mil/mm3 (4.50-5.90); Red Cell Distribution Width 13.2 % (11.6-17.2); White Blood Count 4.8 th/mm3 (4.0-11.0)
[2018-04-09] MEDS: Lisinopril 10 MG Tablet PO SCH ×2 (08:46→20:38)
[2018-04-09] MEDS: Non-Formulary Drug (Levothyroxine [Levothyroxine] 75 MCG) PO SCH (08:52)
[2018-04-09] MEDS: diphenhydrAMINE 2%/Zinc Cream 30 GM Tube TOPICAL PRN (08:52)
[2018-04-09] MEDS: Gabapentin 100 MG Capsule PO SCH ×3 (08:56→17:53)
[2018-04-09] MEDS: Furosemide 20 MG Tablet PO SCH ×2 (08:57→17:53)
--- NOTE | 2018-04-09 08:58 | P.PN ---
Subjective Interval history: F/U allergy, HTN and DM. Feels better. BP improved augustus when he is sleeping. This am SBP 205 asymptomatic though. A1c 8.1 largest meal dinner uses SSC TID Physical Exam Vital signs: Vital Signs 04/08/18 09:00 04/08/18 11:41 04/08/18 12:00 Temperature 98.4 F Pulse Rate 62 86 91 H Respiratory Rate 13 14 Blood Pressure 113/53 L 146/71 H Pulse Oximetry 95 96 04/08/18 13:00 04/08/18 13:01 04/08/18 14:00 Temperature Pulse Rate 106 H 107 H 92 H Respiratory Rate 22 16 15 Blood Pressure 142/79 H 164/81 H Pulse Oximetry 99 99 96 04/08/18 15:00 04/08/18 15:53 04/08/18 16:00 Temperature Pulse Rate 96 H 92 H 92 H Respiratory Rate 13 11 L 15 Blood Pressure 188/87 H 178/85 H 186/87 H Pulse Oximetry 98 99 100 04/08/18 17:00 04/08/18 18:00 04/08/18 20:00 Temperature Pulse Rate 92 H 104 H 94 H Respiratory Rate 15 19 18 Blood Pressure 189/91 H 161/72 H Pulse Oximetry 95 04/09/18 00:00 04/09/18 04:00 04/09/18 07:45 Temperature Pulse Rate 84 67 Respiratory Rate 16 16 Blood Pressure 141/82 H 126/58 L Pulse Oximetry 96 97 97 Intake & Output 04/08/18 04/09/18 04/09/18 18:59 06:59 18:59 Intake Total 360 / 360 Output Total 800 / 800 Balance -440 / -440 Weight 103 kg Intake: Oral 360 / 360 Output: Urine 800 / 800 Other: # Voids 6 Date of Last Bowel Movement 04/08/18 # Bowel Movements 0 Narrative: Gen.: No acute distress Cardiovascular: Regular rate and rhythm. No murmurs, rubs or gallops. Respiratory: Lungs clear to auscultation bilaterally. No wheezes or rhonchi. Abdomen: Soft, nontender, nondistended. No peritoneal signs. Musculoskeletal: No gross deformities. No edema. Skin: Stable erythematous rash covering all 4 extremities and chest. Some areas of excoriation present with lesions in various stages of healing. Patient with chronic nonhealing wounds on the bilateral medial ankle and left peralta. No signs of infection Neuro: Sensory and motor grossly intact. Cranial nerves II through XII grossly intact. Results - Labs CBC & Chem 7: 04/09/18 06:22 04/08/18 11:46 Laboratory Results - last 24 hr 04/08/18 04/08/18 04/08/18 05:40 09:46 11:46 WBC RBC Hgb Hct MCV MCH MCHC RDW Plt Count MPV Neut % (Auto) Lymph % (Auto) [place] % (Auto) Eos % (Auto) Baso % (Auto) Neut # (Auto) Lymph # (Auto) [place] # (Auto) Eos # (Auto) Baso # (Auto) WBC Differential Differential Comment Sodium 145 Potassium 3.6 D Chloride 113 H Carbon Dioxide 20.3 L Anion Gap 12 BUN 26 H Creatinine 1.44 H Estimated GFR 50 L POC Glucose 103 Random Glucose 121 H D Hemoglobin A1c Calcium 8.0 L Phosphorus 2.9 Albumin 1.5 L Nasal Screen MRSA (PCR) Not detected 04/08/18 04/08/18 04/08/18 12:25 14:58 21:07 WBC RBC Hgb Hct MCV MCH MCHC RDW Plt Count MPV Neut % (Auto) Lymph % (Auto) [place] % (Auto) Eos % (Auto) Baso % (Auto) Neut # (Auto) Lymph # (Auto) [place] # (Auto) Eos # (Auto) Baso # (Auto) WBC Differential Differential Comment Sodium Potassium Chloride Carbon Dioxide Anion Gap BUN Creatinine Estimated GFR POC Glucose 307 H 337 H Random Glucose Hemoglobin A1c 8.1 H Calcium Phosphorus Albumin Nasal Screen MRSA (PCR) 04/09/18 04/09/18 04/09/18 03:00 06:22 08:46 WBC 4.8 RBC 4.12 L Hgb 12.4 L Hct 35.7 L MCV 86.5 MCH 30.1 MCHC 34.7 RDW 13.2 Plt Count 130 L MPV 9.7 Neut % (Auto) 57.5 Lymph % (Auto) 25.4 [place] % (Auto) 8.8 H Eos % (Auto) 7.7 H Baso % (Auto) 0.6 Neut # (Auto) 2.8 Lymph # (Auto) 1.2 [place] # (Auto) 0.4 Eos # (Auto) 0.4 Baso # (Auto) 0.0 WBC Differential . Differential Comment Auto diff final Sodium Potassium Chloride Carbon Dioxide Anion Gap BUN Creatinine Estimated GFR POC Glucose 238 H 120 H Random Glucose Hemoglobin A1c Calcium Phosphorus Albumin Nasal Screen MRSA (PCR) Microbiology 04/07/18 22:40 Blood - Peripheral Aerobic Blood Culture - Preliminary No growth in 1 day 04/07/18 22:40 Blood - Peripheral Anaerobic Blood Culture - Preliminary No growth in 1 day 04/07/18 22:35 Blood - Peripheral Aerobic Blood Culture - Preliminary No growth in 1 day 04/07/18 22:35 Blood - Peripheral Anaerobic Blood Culture - Preliminary No growth in 1 day - Imaging Impressions Abdomen/Bladder Ultrasound 04/08/18 00:00 CONCLUSION: Negative exam. Both kidneys and the urinary bladder are sonographically normal. - Procedures none Assessment and Plan - Assessment (1) Hypertensive urgency Code(s): I16.0 - Hypertensive urgency Status: Acute (2) Hypertensive nephropathy Code(s): I12.9 - Hypertensive chronic kidney disease with stage 1 through stage 4 chronic kidney disease, or unspecified chronic kidney disease Status: Acute - Plan 1. Hypertensive urgency. Improving Status post nitro and labetalol in the ED Off Cardene drip keep blood pressure less than 160/90 Holding home hydralazine given possible allergic reaction Continue Lasix and lisinopril both adjusted and ct hydralazine. BP high again this am, lazaro RN to give scheduled meds. If needed give prn in one hr 2. Rash/allergic reaction. Stable Holding Keflex and hydralazine IV Benadryl prn. Ct scheduled Atarax for 1 more day and as needed topical Benadryl 3. Chronic wounds Patient with multiple chronic wounds without obvious signs of infection Started on Keflex by his primary care provider on Sunday DC Keflex for possible allergic reaction We will also discontinue Bactrim DS in light of kidney dysfunction 4. Diabetes mellitus Patient's compliance with his home insulin is intermittent due to financial constraints Sliding-scale insulin Monitor blood glucose A1c 8.1. Diabetic education Start 70/30 10 units q 5 pm plus SSC 5. Hepatitis C/cirrhosis with elevated AST Continue outpatient follow-up 6. Acute versus chronic kidney disease likely hypertensive nephropathy. Nonoliguric. CK not elevated. Consulted nephrology . Rpt BMP pending avoid nephrotoxins 7. DVT prophylaxis with subcu heparin FEN Diabetic diet Electrolytes: Monitor and replete as needed Discharge Planning: possible dc in am. Transfer to floor later today if cardene drip not needed
[2018-04-09 09:18] LABS: Calcium 8.3 mg/dL (8.5-10.1)
--- NOTE | 2018-04-09 10:51 | P.PNNP ---
Subjective Interval history: Patient had no verbal complaints. Apparently his blood pressure tends to improve when he is sleeping. Physical Exam Vital signs: Vital Signs 04/08/18 11:41 04/08/18 12:00 04/08/18 13:00 Pulse Rate 86 91 H 106 H Respiratory Rate 13 14 22 Blood Pressure 146/71 H Pulse Oximetry 95 96 99 04/08/18 13:01 04/08/18 14:00 04/08/18 15:00 Pulse Rate 107 H 92 H 96 H Respiratory Rate 16 15 13 Blood Pressure 142/79 H 164/81 H 188/87 H Pulse Oximetry 99 96 98 04/08/18 15:53 04/08/18 16:00 04/08/18 17:00 Pulse Rate 92 H 92 H 92 H Respiratory Rate 11 L 15 15 Blood Pressure 178/85 H 186/87 H 189/91 H Pulse Oximetry 99 100 04/08/18 18:00 04/08/18 20:00 04/09/18 00:00 Pulse Rate 104 H 94 H 84 Respiratory Rate 19 18 16 Blood Pressure 161/72 H 141/82 H Pulse Oximetry 95 96 04/09/18 04:00 04/09/18 07:45 Pulse Rate 67 Respiratory Rate 16 Blood Pressure 126/58 L Pulse Oximetry 97 97 Intake & Output 04/08/18 04/09/18 04/09/18 18:59 06:59 18:59 Intake Total 360 / 360 Output Total 800 / 800 Balance -440 / -440 Weight 103 kg Intake: Oral 360 / 360 Output: Urine 800 / 800 Other: # Voids 6 Date of Last Bowel Movement 04/08/18 # Bowel Movements 0 - Constitutional no acute distress - Routine HEENT Exam Head: Present: normocephalic - Routine Respiratory Exam Present: CTA bilaterally - Routine Cardiovascular Exam Present: RRR - Routine Abdominal Exam Present: soft - Routine Skin Exam Present: dry - Routine Neurological Exam Present: alert - Routine Psychiatric Exam Present: normal affect Assessment and Plan - Assessment (1) Hypertensive urgency Code(s): I16.0 - Hypertensive urgency Status: Acute Plan: Patient's blood pressure is trending downward. Continue lisinopril 10 mg twice daily together with Cardura 2 mg at bedtime. We will also add a beta-zoie Coreg. Combination of alpha and beta zoie may be beneficial in the setting of labile hypertension. (2) Chronic kidney disease, stage III (moderate) Code(s): N18.3 - Chronic kidney disease, stage 3 (moderate) Status: Chronic Plan: Most likely secondary to nephrosclerosis of hypertension and aging. Unsure if hepatitis C could also be playing a role. The patient is already established with a commissioned sales associate in [place]. Will defer further evaluation of same to that physician and the patient is scheduled for follow-up later this month. Patient's creatinine level is improving with improvement in blood pressure. Medications should be adjusted for the patient's estimated GFR if clinically indicated. Avoid agents with significant potential for nephrotoxicity possible including NSAIDs for analgesia, iodine contrast agents. Gadolinium is contraindicated if the GFR is below 30. (3) Chronic hepatitis C Code(s): B18.2 - Chronic viral hepatitis C Status: Chronic Plan: Apparently he has a history of chronic hepatitis C although I have no serological data in the hospitals EMR to confirm same. Patient was advised that it would be prudent for him to follow-up with a annealing operator/ reeling operator to determine whether or not it would be beneficial for him to be treated if he does indeed have chronic hepatitis C. Will defer serological screening and further evaluation of primary care physician in-house. Patient resides in another city and I indicated to him it would be prudent to establish with a GI liver specialist locally.
[2018-04-09] MEDS: Senna/Docusate Sodium 8.6/50 MG Tablet PO SCH ×2 (15:58→20:38)
[2018-04-10] MEDS: Heparin - SQ 10,000 UNITS/ML Vial SQ SCH ×2 (01:26→11:14)
[2018-04-10] MEDS: Insulin NovoLOG Aspart Correctional Sugar Inj SQ SCH ×3 (02:46→12:02)
[2018-04-10 07:16] LABS: Calcium 7.8 mg/dL (8.5-10.1); Carbon Dioxide 22.4 meq/L (21.0-32.0); Potassium 4.1 meq/L (3.5-5.1)
[2018-04-10] MEDS: Gabapentin 100 MG Capsule PO SCH ×2 (08:45→12:03)
[2018-04-10] MEDS: Lisinopril 10 MG Tablet PO SCH (08:46)
[2018-04-10] MEDS: Senna/Docusate Sodium 8.6/50 MG Tablet PO SCH (08:46)
[2018-04-10] MEDS: Non-Formulary Drug (Levothyroxine [Levothyroxine] 75 MCG) PO SCH (08:47)
[2018-04-10] MEDS: Furosemide 20 MG Tablet PO SCH (08:58)
--- NOTE | 2018-04-10 10:19 | P.PN ---
Subjective Interval history: Follow-up hypertension. States he is sluggish on Atarax. Denies headache, dizziness, chest pain and shortness of breath. BP improving. Physical Exam Vital signs: Vital Signs 04/09/18 11:00 04/09/18 12:00 04/09/18 13:00 Temperature 97.9 F Pulse Rate 92 H 94 H 82 Respiratory Rate 14 14 13 Blood Pressure 129/60 Pulse Oximetry 99 96 97 04/09/18 13:15 04/09/18 13:30 04/09/18 13:45 Temperature Pulse Rate 84 76 77 Respiratory Rate 16 15 14 Blood Pressure 156/76 H 139/68 171/81 H Pulse Oximetry 97 94 L 98 04/09/18 14:00 04/09/18 14:15 04/09/18 14:30 Temperature Pulse Rate 86 84 78 Respiratory Rate 13 14 14 Blood Pressure 167/84 H 155/81 H 155/78 H Pulse Oximetry 99 98 97 04/09/18 14:46 04/09/18 15:00 04/09/18 15:15 Temperature Pulse Rate 70 72 73 Respiratory Rate 14 14 15 Blood Pressure 123/58 L 115/56 L 113/56 L Pulse Oximetry 97 96 96 04/09/18 15:30 04/09/18 15:45 04/09/18 16:00 Temperature Pulse Rate 85 82 96 H Respiratory Rate 14 13 33 H Blood Pressure 167/79 H 173/84 H 154/77 H Pulse Oximetry 98 97 97 04/09/18 16:15 04/09/18 16:30 04/09/18 16:45 Temperature Pulse Rate 91 H 95 H 81 Respiratory Rate 13 21 16 Blood Pressure 120/67 121/67 135/72 Pulse Oximetry 96 97 97 04/09/18 17:00 04/09/18 17:15 04/09/18 17:30 Temperature Pulse Rate 86 93 H 87 Respiratory Rate 14 19 19 Blood Pressure 183/90 H 166/83 H 180/93 H Pulse Oximetry 98 99 97 04/09/18 17:45 04/09/18 18:00 04/09/18 18:01 Temperature Pulse Rate 89 98 H 95 H Respiratory Rate 13 32 H 25 H Blood Pressure 174/99 H 209/99 H Pulse Oximetry 97 98 98 04/09/18 18:15 04/09/18 18:30 04/09/18 19:01 Temperature Pulse Rate 100 H 95 H 98 H Respiratory Rate 17 16 25 H Blood Pressure 200/98 H 169/85 H Pulse Oximetry 98 96 98 04/09/18 19:02 04/09/18 20:00 04/09/18 20:02 Temperature Pulse Rate 96 H 96 H Respiratory Rate 17 Blood Pressure 140/73 Pulse Oximetry 97 98 98 04/09/18 22:44 04/10/18 00:00 04/10/18 03:00 Temperature 98.1 F 98.3 F Pulse Rate 65 76 80 Respiratory Rate 17 17 Blood Pressure 165/88 H 154/75 H Pulse Oximetry 97 97 04/10/18 04:00 Temperature 98.3 F Pulse Rate 80 Respiratory Rate 17 Blood Pressure 154/75 H Pulse Oximetry 97 Intake & Output 04/09/18 04/10/18 04/10/18 18:59 06:59 18:59 Intake Total 360 / 360 785 / 785 Output Total 800 / 800 1125 / 1125 Balance -440 / -440 -340 / -340 Weight 104 kg Intake: Oral 360 / 360 785 / 785 Output: Urine 800 / 800 1125 / 1125 Other: # Voids 6 6 Date of Last Bowel Movement 04/08/18 04/08/18 # Bowel Movements 0 0 Narrative: Gen.: No acute distress well-developed obese Cardiovascular: Regular rate and rhythm. No murmurs, rubs or gallops. Respiratory: Lungs clear to auscultation bilaterally. No wheezes or rhonchi. Abdomen: Soft, nontender, nondistended. No peritoneal signs. Musculoskeletal: No gross deformities. No edema. Skin: Stable erythematous rash covering all 4 extremities and chest. Some areas of excoriation present with lesions in various stages of healing. Patient with chronic nonhealing wounds on the bilateral medial ankle and left peralta. No signs of infection Neuro: Sensory and motor grossly intact. Cranial nerves II through XII grossly intact. Results - Labs CBC & Chem 7: 04/09/18 06:22 04/10/18 05:37 Laboratory Results - last 24 hr 04/09/18 04/09/18 04/10/18 17:58 20:27 02:39 Sodium Potassium Chloride Carbon Dioxide Anion Gap BUN Creatinine Estimated GFR POC Glucose 312 H 220 H 111 H Random Glucose Calcium 04/10/18 04/10/18 05:37 08:11 Sodium 145 Potassium 4.1 Chloride 113 H Carbon Dioxide 22.4 Anion Gap 10 BUN 30 H Creatinine 1.44 H Estimated GFR 50 L POC Glucose 106 Random Glucose 102 Calcium 7.8 L Microbiology 04/07/18 22:40 Blood - Peripheral Aerobic Blood Culture - Preliminary No growth in 2 days 04/07/18 22:40 Blood - Peripheral Anaerobic Blood Culture - Preliminary No growth in 2 days 04/07/18 22:35 Blood - Peripheral Aerobic Blood Culture - Preliminary No growth in 2 days 04/07/18 22:35 Blood - Peripheral Anaerobic Blood Culture - Preliminary No growth in 2 days - Procedures none Assessment and Plan - Assessment (1) Hypertensive urgency Code(s): I16.0 - Hypertensive urgency Status: Acute (2) Hypertensive nephropathy Code(s): I12.9 - Hypertensive chronic kidney disease with stage 1 through stage 4 chronic kidney disease, or unspecified chronic kidney disease Status: Acute - Plan 1. Hypertensive urgency. Improving Status post nitro and labetalol in the ED Off Cardene drip keep blood pressure less than 160/90 Holding home hydralazine given possible allergic reaction Continue Lasix and lisinopril both adjusted. Also started on Coreg 3.125 mg twice a day yesterday. BP slightly up today, will increase Coreg further to 6.25 mg twice a day and continue to monitor. At this time he is asymptomatic, possible discharge later today if BP continues to improve 2. Rash/allergic reaction. Stable Holding Keflex and hydralazine IV Benadryl prn. Ct scheduled Atarax for 1 more day and as needed topical Benadryl 3. Chronic wounds Patient with multiple chronic wounds without obvious signs of infection Started on Keflex by his primary care provider on Sunday DC Keflex for possible allergic reaction We will also discontinue Bactrim DS in light of kidney dysfunction 4. Diabetes mellitus Patient's compliance with his home insulin is intermittent due to financial constraints Sliding-scale insulin Monitor blood glucose A1c 8.1. Diabetic education Continue 70/30 10 units q 5 pm plus SSC 5. Hepatitis C/cirrhosis with elevated AST Continue outpatient follow-up 6. Acute versus chronic kidney disease likely hypertensive nephropathy. Nonoliguric. CK not elevated. Consulted nephrology . Rpt BMP shows improving renal function avoid nephrotoxins 7. DVT prophylaxis with subcu heparin FEN Diabetic diet Electrolytes: Monitor and replete as needed Discharge Planning: possible dc later today. Transfer to floor order placed yesterday.
[2018-04-10] MEDS ORDERED: Carvedilol 6.25 MG Tablet PO SCH ×2 (11:00→21:00)
[2018-04-10] MEDS ORDERED: Lisinopril 10 MG Tablet PO SCH (17:00)
--- NOTE | 2018-04-11 08:26 | P.DS ---
Date of admission: 04/08/18 01:51 Primary care physician: Sanjeev Arevalo Anticipated date of discharge: 04/10/18 Brief History from admission: 57-year-old male with a past medical history significant for diabetes, hepatitis C cirrhosis, and hypertension presents to the emergency department for the evaluation of a rash. The patient reports that he has had a rash on his body that acutely worsened on Sunday after starting a new medication. The patient's primary care provider started him on hydralazine and Keflex on Sunday. The Keflex was prescribed because the patient has several nonhealing wounds on his body. He states he developed a rash all over his extremities, chest and abdomen that has now spread to his face that is extremely itchy starting on Sunday after taking the medication. The patient also complains of lightheadedness and dizziness. His blood pressure on arrival to the emergency department was found to be 257/126. The patient denies any headache or blurry vision. No chest pain or shortness of breath. Positive fatigue. No abdominal pain. No nausea/vomiting/diarrhea. No lateralizing signs/symptoms. DS: Diagnosis - Discharge Diagnosis (1) Hypertensive urgency Status: Acute (2) Hypertensive nephropathy Status: Acute DS: Medications - Discharge Medications Prescriptions: carvedilol [Coreg] 6.25 mg PO BID #60 tab doxazosin 2 mg PO HS #30 tab furosemide 20 mg PO BID@0900,1800 #60 tab insulin NPH and regular human [Novolin 70/30 U-100 Insulin] 10 units SUB-Q DAILY @1700 #30 ml lisinopril 10 mg PO DAILY@0700,1700 #60 tab DS: Summary Hospital Course: 1. Hypertensive urgency. Improving Status post nitro and labetalol in the ED Off Cardene drip keep blood pressure less than 160/90 Holding home hydralazine given possible allergic reaction Continue Lasix and lisinopril both adjusted. Also started on Coreg 3.125 mg twice a day yesterday. BP slightly up today, will increase Coreg further to 6.25 mg twice a day and continue to monitor. At this time he is asymptomatic, possible discharge later today if BP continues to improve 2. Rash/allergic reaction. Stable Holding Keflex and hydralazine IV Benadryl prn. Ct scheduled Atarax for 1 more day and as needed topical Benadryl 3. Chronic wounds Patient with multiple chronic wounds without obvious signs of infection Started on Keflex by his primary care provider on Sunday DC Keflex for possible allergic reaction We will also discontinue Bactrim DS in light of kidney dysfunction 4. Diabetes mellitus Patient's compliance with his home insulin is intermittent due to financial constraints Sliding-scale insulin Monitor blood glucose A1c 8.1. Diabetic education Continue 70/30 10 units q 5 pm plus SSC 5. Hepatitis C/cirrhosis with elevated AST Continue outpatient follow-up 6. Acute versus chronic kidney disease likely hypertensive nephropathy. Nonoliguric. CK not elevated. Consulted nephrology . Rpt BMP shows improving renal function avoid nephrotoxins 7. DVT prophylaxis with subcu heparin FEN Diabetic diet Electrolytes: Monitor and replete as needed - Time Spent with Patient Total time spent providing and/or coordinating discharge services: - Quality: VTE Deep Vein Thrombosis/Pulmonary Embolism Present on Admission: No Exam Vital signs: Vital Signs 04/10/18 09:00 04/10/18 12:00 04/10/18 16:00 Temperature 97.8 F 98 F Pulse Rate 99 H 79 81 Respiratory Rate 13 12 Blood Pressure 179/87 H 168/87 H Pulse Oximetry 100 97 Intake & Output 04/10/18 04/11/18 04/11/18 18:59 06:59 18:59 Other: Date of Last Bowel Movement 04/08/18 Narrative: Gen.: No acute distress well-developed obese Cardiovascular: Regular rate and rhythm. No murmurs, rubs or gallops. Respiratory: Lungs clear to auscultation bilaterally. No wheezes or rhonchi. Abdomen: Soft, nontender, nondistended. No peritoneal signs. Musculoskeletal: No gross deformities. No edema. Skin: Stable erythematous rash covering all 4 extremities and chest. Some areas of excoriation present with lesions in various stages of healing. Patient with chronic nonhealing wounds on the bilateral medial ankle and left peralta. No signs of infection Neuro: Sensory and motor grossly intact. Cranial nerves II through XII grossly intact. Results Procedures completed during hospitalization: none Labs on day of discharge: Labs from last 24 hours 04/10/18 11:48 POC Glucose 217 H Preliminary micro results at discharge 04/07/18 22:40 Aerobic Blood Culture - Preliminary Blood - Peripheral No growth in 3 days Anaerobic Blood Culture - Preliminary No growth in 3 days 04/07/18 22:35 Aerobic Blood Culture - Preliminary Blood - Peripheral No growth in 3 days Anaerobic Blood Culture - Preliminary No growth in 3 days - Impressions ITS Impressions Chest X-Ray 04/07/18 22:10 CONCLUSION: Abdomen/Bladder Ultrasound 04/08/18 00:00 CONCLUSION: Negative exam. Both kidneys and the urinary bladder are sonographically normal. Head CT 04/08/18 00:50 CONCLUSION: 1. No acute intracranial abnormality. Discharge Plan - Discharge Disposition Patient Disposition: Discharge Home - Discharge Condition Condition: Stable - Discharge Order Discharge Orders: Discharge Order (Routine); Ordered 04/10/18 Ordered By: Tenzin Hercules - Physicians Team Primary Care Provider: Sanjeev Arevalo Attending Provider: Tenzin Hercules Other Providers: Miguel Renteria MD
== END 2018-04-10 17:25 | disposition home or self-care (01) ==
LOC: NEPE 21:15 → NEDA 04-08 01:51 → HIMC 04-08 05:25
PROVIDERS: ADMIT Internal Medicine; ATTEND Internal Medicine